=== PATIENT | female | born 1950 | race Caucasian/White ===

== ENCOUNTER 2019-03-30 15:33 | Inpatient (IN) ==
--- NOTE | 2019-03-30 17:27 | Diag Imaging Result Doc PS360 ---
EXAM: CHEST-1 VIEW INDICATION: ISCHEMIC RIGHT FOOT TECHNIQUE: One view COMPARISON: None. FINDINGS: The lungs are grossly clear. There is no discrete pleural fluid collection or pneumothorax. The cardiomediastinal silhouette and central vasculature are grossly unremarkable. IMPRESSION: No evidence of acute pathology by plain radiograph. Electronically signed by Claudy Oliver 03/30/2019 5:25 PM
--- NOTE | 2019-03-30 18:09 | EKG Report ---
Test Performed on : 03/30/2019 5:55:11 PM Test Reason : ischemic right foot Blood Pressure : / mmHG Vent. Rate : 089 BPM Atrial Rate : 089 BPM P-R Int : 158 ms QRS Dur : 090 ms QT Int : 374 ms P-R-T Axes : -18 013 -21 degrees QTc Int : 455 ms Normal sinus rhythm. Nonspecific ST abnormality Abnormal ECG No previous ECGs available Confirmed by Mirella APPIAH, Juan Ramirez ([id number]) on 03/31/2019 7:46:38 AM
[2019-03-30] MEDS: MORPHINE IV PRN ×2 (18:38→22:44)
[2019-03-30 19:37] LABS: HEMATOCRIT 24.7 % (37.0-47.0); HEMOGLOBIN 7.9 g/dL (12.0-16.0); MCH 29.5 PG (27-31); MCV 92.2 FL (81-99); MPV 9.3 FL (7.4-10.4); RBC 2.68 XMIL (4.2-5.4); RDW 12.2 % (11.5-14.5); WBC 24.82 X1000 (4.8-10.8)
[2019-03-30 19:53] LABS: AGAP 11; BUN 30 mg/dL (8-22); CALCIUM 8.8 mg/dL (8.8-10.2); CHLORIDE 88 mmol/L (98-107); COSMO 262; CREATININE 0.7 mg/dL (0.5-0.9); GLUCOSE 117 mg/dL (70-104); POTASSIUM 3.1 mmol/L (3.5-5.1); SODIUM 127 mmol/L (136-145); TCO2 28 mmol/L (25-35)
[2019-03-30 20:29] LABS: URINE SOURCE CLEAN CATCH
[2019-03-30 20:38] LABS: BILIRUBIN URINE NEGATIVE (NEGATIVE); BLOOD URINE NEGATIVE (NEGATIVE); COLOR YELLOW; GLUCOSE URINE NEGATIVE (NEGATIVE); KETONE URINE NEGATIVE (NEGATIVE); LEUKOCYTES URINE NEGATIVE (NEGATIVE); NITRITE URINE NEGATIVE (NEGATIVE); PH URINE 6.5; PROTEIN URINE NEGATIVE (NEGATIVE); TURBIDITY URINE CLEAR (CLEAR); UR EPITHELIAL CELLS <10 /HPF (<10); URINE BACTERIA NEGATIVE /HPF; URINE RBC <10 /HPF (<10); URINE WBC <10 /HPF (<10); UROBILINOGEN URINE 2 mg/dL (NORMAL)
[2019-03-31] MEDS: MORPHINE IV PRN ×5 (02:47→19:59)
[2019-03-31] MEDS: ZOSYN 3.375 GM in NS 50 ML IV SCH ×2 (08:02→16:02)
[2019-03-31] MEDS: NS + KCL 20 MEQ 1,000 ML IV SCH ×2 (08:02→18:21)
--- NOTE | 2019-03-31 08:48 | EKG Report ---
Test Performed on : 03/31/2019 07:48:28 AM Test Reason : CP Blood Pressure : / mmHG Vent. Rate : 100 BPM Atrial Rate : 100 BPM P-R Int : 154 ms QRS Dur : 082 ms QT Int : 370 ms P-R-T Axes : 079 050 086 degrees QTc Int : 477 ms Normal sinus rhythm. Cannot rule out Inferior infarct , age undetermined Cannot rule out Anterior infarct , age undetermined Abnormal ECG When compared with ECG of 30-MAR-2019 17:55, Minimal criteria for Inferior infarct are now present T wave inversion no longer evident in Inferior leads T wave inversion now evident in Lateral leads Confirmed by Mirella APPIAH, Juan Ramirez ([id number]) on 04/01/2019 7:42:25 PM
--- NOTE | 2019-03-31 09:30 | GENERAL SURGERY PROGRESS NOTE ---
DATE: 03/31/2019 SUBJECTIVE: Ms. Leahy required pain medicine for pain relief last night. OBJECTIVE: She is afebrile, heart rate is 93. Blood pressure 116/56. LABORATORY DATA: [place] [address], hemoglobin 7.9, hematocrit 24.7, sodium 127, potassium 3.1, chloride 88, BUN 30, creatinine 0.7. PLAN: To start her on IV antibiotics using Zosyn and vancomycin. We will map for greater saphenous vein. Today will give her saline with potassium also prepare blood for surgery. Once again, discussed the benefits and risks of surgery. She understands. cc: Topher Colby MD
[2019-03-31] MEDS: VANCOMYCIN 1 GM/NS 1 GM/250 ML IVPB IV SCH ×2 (10:12→21:58)
[2019-03-31] MEDS: CRESTOR PO SCH (11:11)
[2019-03-31] MEDS: NEURONTIN PO SCH ×3 (11:11→19:59)
[2019-03-31] MEDS: HYDROCHLOROTHIAZIDE PO SCH (11:13)
[2019-03-31] MEDS ORDERED: HEPARIN ONE ×4 (11:40→11:42)
[2019-03-31] MEDS ORDERED: NS 2,000 ML ONE (11:43)
[2019-03-31] MEDS ORDERED: KEFZOL ONE (12:11)
[2019-03-31] MEDS ORDERED: PAPAVERINE ONE (12:14)
[2019-03-31] MEDS ORDERED: FENTANYL ONE (12:15)
[2019-03-31] MEDS ORDERED: DIPRIVAN 1% ONE (12:16)
[2019-03-31] MEDS ORDERED: QUELICIN (DOSE) ONE (12:17)
[2019-03-31] MEDS ORDERED: SODIUM CHLORIDE 0.9% 10 ML ONE (12:17)
[2019-03-31] MEDS ORDERED: NORCURON ONE (12:17)
[2019-03-31] MEDS ORDERED: XYLOCAINE-MPF 2% ONE (12:17)
[2019-03-31] MEDS ORDERED: ROBINUL ONE ×2 (12:25→13:20)
[2019-03-31] MEDS ORDERED: VERSED ONE (12:32)
[2019-03-31] MEDS ORDERED: NEOSTIGMINE ONE (13:20)
[2019-03-31] MEDS ORDERED: ZOFRAN ONE (13:20)
[2019-03-31] MEDS: DILAUDID ONE ×2 (13:54→14:00)
[2019-03-31 14:04] LABS: URINE SOURCE CATH
[2019-03-31 14:12] LABS: BILIRUBIN URINE NEGATIVE (NEGATIVE); BLOOD URINE NEGATIVE (NEGATIVE); COLOR YELLOW; GLUCOSE URINE NEGATIVE (NEGATIVE); KETONE URINE 10 mg/dL (NEGATIVE); LEUKOCYTES URINE NEGATIVE (NEGATIVE); NITRITE URINE NEGATIVE (NEGATIVE); PH URINE 6.5; PROTEIN URINE TRACE mg/dL (NEGATIVE); SP GRAVITY URINE 1.019; TURBIDITY URINE CLEAR (CLEAR); UROBILINOGEN URINE NORMAL (NORMAL)
[2019-03-31 14:14] LABS: UR EPITHELIAL CELLS <10 /HPF (<10); URINE BACTERIA NEGATIVE /HPF; URINE RBC <10 /HPF (<10); URINE WBC <10 /HPF (<10)
--- NOTE | 2019-03-31 15:36 | OPERATIVE NOTE ---
PROCEDURE DATE: 03/31/2019 NAME OF PROCEDURE: 1. Percutaneous right common femoral artery access with ultrasound guidance. 2. Right lower extremity arteriogram. 3. Attempted right popliteal artery access with ultrasound guidance. SURGEON: Topher Colby MD ELECTRON MICROSCOPIST: YADIRA Abarca PREOPERATIVE DIAGNOSES: Rest ischemia right leg with ulceration. POSTOPERATIVE DIAGNOSES: Rest ischemia right leg with ulceration with occluded superficial femoral artery, occluded popliteal and no major vessel runoff. DESCRIPTION OF PROCEDURE: After satisfactory general endotracheal anesthesia, the left groin, right groin and right leg were prepped and draped in a sterile fashion. We imaged the right common femoral artery and identified it on the ultrasound. We then made a small stab incision and accessed the right common femoral artery antegrade. The guidewire that we placed through the needle Seldinger technique went down in the deep femoral. The stent was identified, so we knew we were not going into the SFA. We took the wire out, shot contrast through the needle and the SFA was completely occluded. We went ahead and replaced our wire and followed by a 6-Ethiopian sheath. So, we then imaged the distal popliteal and attempted access to it, but engaged the vein and did not engage the artery. We went above the knee and identified the proximal popliteal and accessed it with a needle with ultrasound guidance, but there was no flow present. We then shot a arteriogram through the sheath into the deep femoral to look for named vessel runoff, but there was absolutely no filling of any named vessel that would go below the knee to the foot. So it became apparent that she has an unsalvageable arterial flow to her foot and will end up with an amputation. I did not feel that any further intervention was indicated. We removed the sheath and held pressure for 6 minutes. Hemostasis was satisfactory. She never received any heparin. A sterile pressure dressing was applied. She tolerated the procedure satisfactorily. She was given 37 mL of contrast. She was sent to the recovery room in stable condition. cc: Topher Colby MD
[2019-03-31] MEDS: NORCO-10 PO PRN ×2 (17:35→21:58)
--- NOTE | 2019-03-31 19:24 | VASCULAR LAB ---
DATE: 03/31/2019 PACKING CLERK: Chloe. REQUESTING PHYSICIAN: Dr. Colby. INDICATION: Evaluate for bypass. FINDINGS: The greater saphenous vein in the right lower extremity, starting at the saphenofemoral junction: Zone 1, 4.1 mm, zone 2, 2.1, zone 3, 1.4, zone 4, 1.4, zone 5, 1.3, zone 6, 1.3, zone 7, 1.4, zone 8, 2.5. SUMMARY: The greater saphenous vein is very sclerotic and small caliber in the right lower extremity. It is not an adequate conduit. cc: MD Topher Pickens MD
[2019-03-31] MEDS: PERIDEX MT SCH (21:58)
[2019-04-01] MEDS: ZOSYN 3.375 GM in NS 50 ML IV SCH ×4 (00:06→18:06)
[2019-04-01] MEDS: MORPHINE IV PRN ×6 (00:31→22:09)
[2019-04-01] MEDS: NS + KCL 20 MEQ 1,000 ML IV SCH ×2 (01:09→13:18)
[2019-04-01] MEDS: NORCO-10 PO PRN ×5 (02:25→20:22)
[2019-04-01 07:11] LABS: BASO# 0.05 X1000 (0.0-0.2); BASO% 0.3 % (0.0-0.8); EOS# 0.21 X1000 (0.0-0.7); EOS% 1.4 % (0.0-10.0); HEMATOCRIT 27.2 % (37.0-47.0); HEMOGLOBIN 8.6 g/dL (12.0-16.0); IMM GRAN# 0.54 X1000 (0.0-0.04); IMM GRAN% 3.5 % (0.0-0.5); LYMPH# 2.24 X1000 (1.2-3.4); LYMPH% 14.5 % (20.5-51.1); MCH 28.7 PG (27-31); MCHC 31.6 g/dL (33-37); MCV 90.7 FL (81-99); MONO# 1.61 X1000 (0.11-0.59); MONO% 10.4 % (1.7-9.3); NEUT# 10.76 X1000 (1.4-6.5); NEUT% 69.9 % (42.2-75.2); PLT 638 X1000 (130-400); RDW 17.3 % (11.5-14.5); WBC 15.41 X1000 (4.8-10.8)
[2019-04-01 07:39] LABS: AGAP 10; BUN 7 mg/dL (8-22); CALCIUM 8.5 mg/dL (8.8-10.2); CHLORIDE 103 mmol/L (98-107); COSMO 269; CREATININE 0.5 mg/dL (0.5-0.9); GLUCOSE 90 mg/dL (70-104); POTASSIUM 4.4 mmol/L (3.5-5.1); SODIUM 136 mmol/L (136-145); TCO2 23 mmol/L (25-35)
[2019-04-01] MEDS: HYDROCHLOROTHIAZIDE PO SCH (08:15)
[2019-04-01] MEDS: NEURONTIN PO SCH ×3 (08:15→20:21)
[2019-04-01] MEDS: CRESTOR PO SCH (08:15)
[2019-04-01] MEDS: VANCOMYCIN 1 GM/NS 1 GM/250 ML IVPB IV SCH ×2 (08:18→20:21)
[2019-04-01] MEDS: PERIDEX MT SCH ×2 (08:21→20:21)
--- NOTE | 2019-04-01 18:07 | GENERAL SURGERY PROGRESS NOTE ---
DATE: 04/01/2019 Ms. Leahy is postoperative day 1 after right lower extremity arteriogram. I discussed with her the fact that she had no named vessels that were patent below her thigh. I told her that I had no choice but to proceed with amputation, and I thought above the knee would be necessary because of her paucity of flow. She understands that, she accepts it, and she is ready to proceed. We have her scheduled tomorrow for a right above-knee amputation. Her white count today is down to 15,000. Chemistry is okay. cc: Topher Colby MD
[2019-04-02] MEDS: ZOSYN 3.375 GM in NS 50 ML IV SCH ×4 (00:07→17:37)
[2019-04-02] MEDS: NORCO-10 PO PRN ×4 (00:07→20:50)
[2019-04-02] MEDS: NS + KCL 20 MEQ 1,000 ML IV SCH ×3 (00:38→17:14)
[2019-04-02] MEDS: MORPHINE IV PRN ×3 (05:04→18:14)
[2019-04-02] MEDS ORDERED: DIPRIVAN 1% ONE (09:16)
[2019-04-02] MEDS: NEURONTIN PO SCH ×3 (09:32→20:51)
[2019-04-02] MEDS: HYDROCHLOROTHIAZIDE PO SCH (09:32)
[2019-04-02] MEDS: CRESTOR PO SCH (09:32)
[2019-04-02] MEDS: PERIDEX MT SCH ×2 (09:32→20:51)
[2019-04-02] MEDS: VANCOMYCIN 1 GM/NS 1 GM/250 ML IVPB IV SCH ×2 (09:56→20:51)
[2019-04-02] MEDS ORDERED: FENTANYL ONE (10:43)
[2019-04-02] MEDS ORDERED: ZOFRAN ONE (11:06)
[2019-04-02] MEDS: DILAUDID ONE ×4 (11:44→12:05)
[2019-04-02] MEDS: PRINIVIL PO SCH (12:54)
[2019-04-02] MEDS: NORVASC PO SCH (12:54)
--- NOTE | 2019-04-02 14:02 | OPERATIVE NOTE ---
PROCEDURE DATE: 04/02/2019 PROCEDURE PERFORMED: Right above-knee amputation. SURGEON: Topher Colby MD. MANAGER SUPPLY CHAIN PLANNING: Sylvie Rosas RN. PREOPERATIVE DIAGNOSIS: Ischemic gangrene of the right foot. POSTOPERATIVE DIAGNOSIS: Ischemic gangrene of the right foot. INDICATION: A 68-year-old with end-stage peripheral vascular disease without any runoff below the knee. She now presents for a right above-knee amputation. DESCRIPTION OF PROCEDURE: Satisfactory general anesthesia was achieved and LMA was used. The right leg was prepped and draped in a sterile fashion. The foot was excluded. We made a curvilinear dioni anteriorly and posteriorly above the knee. We incised the skin, used the electrocautery to go through the muscle groups anteriorly, laterally and posteriorly. The superficial femoral vessels were clamped, divided, and suture ligated with 2-0 silk suture ligature even there was no arterial flow. Some minor arterial vessels were noted deep in the thigh. These were easily controlled with cautery. After the muscle groups, we identified the nerve, ligated the tibial nerve, ligated it with a 3-0 Polysorb, transected it. We went all the way to the femur. We then raised the periosteum on the femur and then transected with a Gigli saw. The knee and lower leg were handed off. We used a file to file the end of the femur. We then copiously irrigated the stump. We approximated the muscle groups with 0 Polysorb [id number]-[id number] stitches. We approximated the subcutaneous tissue with interrupted 3-0 Polysorb stitches and closed the skin with coby. Xeroform, sterile 4 x 4s, sterile Kerlix and a 6-inch Dileep was applied. She tolerated it well, sent to the recovery room in satisfactory condition. cc: Topher Colby MD
[2019-04-03] MEDS: MORPHINE IV PRN ×6 (00:27→21:49)
[2019-04-03] MEDS: ZOSYN 3.375 GM in NS 50 ML IV SCH ×4 (01:33→21:49)
[2019-04-03] MEDS: NORCO-10 PO PRN ×6 (01:34→22:56)
[2019-04-03] MEDS: NS + KCL 20 MEQ 1,000 ML IV SCH (05:12)
[2019-04-03 06:11] LABS: BASO# 0.04 X1000 (0.0-0.2); BASO% 0.2 % (0.0-0.8); EOS% 1.7 % (0.0-10.0); HEMATOCRIT 31.8 % (37.0-47.0); HEMOGLOBIN 10.2 g/dL (12.0-16.0); LYMPH# 2.24 X1000 (1.2-3.4); LYMPH% 12.8 % (20.5-51.1); MCH 29.8 PG (27-31); MCHC 32.1 g/dL (33-37); MONO# 1.74 X1000 (0.11-0.59); MONO% 9.9 % (1.7-9.3); MPV 8.5 FL (7.4-10.4); NEUT# 13.17 X1000 (1.4-6.5); NEUT% 75.4 % (42.2-75.2); PLT 659 X1000 (130-400); RBC 3.42 XMIL (4.2-5.4); WBC 17.49 X1000 (4.8-10.8)
[2019-04-03 06:15] LABS: AGAP 7; BUN 4 mg/dL (8-22); CALCIUM 8.1 mg/dL (8.8-10.2); CHLORIDE 101 mmol/L (98-107); COSMO 263; CREATININE 0.4 mg/dL (0.5-0.9); GLUCOSE 87 mg/dL (70-104); POTASSIUM 3.8 mmol/L (3.5-5.1); SODIUM 133 mmol/L (136-145); TCO2 25 mmol/L (25-35)
[2019-04-03] MEDS: PERIDEX MT SCH ×2 (08:12→21:49)
[2019-04-03] MEDS: NEURONTIN PO SCH ×3 (08:13→21:49)
[2019-04-03] MEDS: PRINIVIL PO SCH (08:13)
[2019-04-03] MEDS: CRESTOR PO SCH (08:13)
[2019-04-03] MEDS: HYDROCHLOROTHIAZIDE PO SCH (08:13)
[2019-04-03] MEDS: NORVASC PO SCH (08:14)
--- NOTE | 2019-04-03 08:48 | PROGRESS NOTE ---
DATE: 04/03/2019 SUBJECTIVE: Ms. Nelda Leahy is now postop day 1 from a right [id number] amputation for an ischemic right leg per Dr. Colby. OBJECTIVE: She is comfortable this morning. She is awake. She has a Magallon catheter tube in place. Her right hrwnt-xry-dwob amputation wound is dry he. Her heart rate is 93 degrees, blood pressure 147/66, O2 saturation 97%. She is afebrile. She is on IV vancomycin and Zosyn. Her white blood cell count yesterday was 17. BUN and creatinine are 4 and 0.4. MEDICATIONS: She is receiving Hardin 10 and morphine as needed for pain. PLAN: We will leave her Magallon catheter tube in place. Physical Therapy will have to start working with her probably Friday. She is on a diabetic diet. cc: MD Topher Easley MD
[2019-04-03] MEDS: VANCOMYCIN 1 GM/NS 1 GM/250 ML IVPB IV SCH ×2 (08:53→21:49)
[2019-04-04] MEDS: NORCO-10 PO PRN ×4 (05:17→20:58)
[2019-04-04] MEDS: ZOSYN 3.375 GM in NS 50 ML IV SCH ×4 (05:17→20:57)
[2019-04-04] MEDS: HYDROCHLOROTHIAZIDE PO SCH (09:32)
[2019-04-04] MEDS: CRESTOR PO SCH (09:33)
[2019-04-04] MEDS: PRINIVIL PO SCH (09:33)
[2019-04-04] MEDS: NEURONTIN PO SCH ×3 (09:33→20:58)
[2019-04-04] MEDS: NORVASC PO SCH (09:34)
[2019-04-04] MEDS: PERIDEX MT SCH ×2 (09:34→20:58)
[2019-04-04] MEDS: VANCOMYCIN 1 GM/NS 1 GM/250 ML IVPB IV SCH ×2 (09:34→21:15)
--- NOTE | 2019-04-04 09:52 | PROGRESS NOTE ---
DATE: 04/04/2019 Ms Nelda Leahy is status post right vtvsk-[id number]-[id number] amputation per Dr. Colby for ischemic foot. She appears to be comfortable. She is tolerating a regular diet. She still has a Magallon catheter tube in place. Physical therapy has been consulted and I think the plan is to send her to rehab shortly. cc: MD Topher Easley MD
[2019-04-04] MEDS: NS + KCL 20 MEQ 1,000 ML IV SCH ×2 (17:16→20:59)
[2019-04-05] MEDS: ZOSYN 3.375 GM in NS 50 ML IV SCH ×5 (03:12→21:25)
[2019-04-05] MEDS: NORCO-10 PO PRN ×4 (05:33→21:25)
[2019-04-05] MEDS: NEURONTIN PO SCH ×3 (09:02→21:25)
[2019-04-05] MEDS: CRESTOR PO SCH (09:02)
[2019-04-05] MEDS: PERIDEX MT SCH ×2 (09:03→21:25)
[2019-04-05] MEDS: HYDROCHLOROTHIAZIDE PO SCH (09:03)
[2019-04-05] MEDS ORDERED: NS + KCL 20 MEQ 1,000 ML IV SCH (09:04)
--- NOTE | 2019-04-05 09:34 | GENERAL SURGERY PROGRESS NOTE ---
DATE: 04/05/2019 She is now postop day 3 after AK amputation. She feels a whole lot better than she did. The plan today is remove her Magallon, cut her IV rate down to KVO. Physical therapy will be involved in transfer training and will start working on rehab placement. cc: Topher Colby MD
[2019-04-05] MEDS: VANCOMYCIN 1 GM/NS 1 GM/250 ML IVPB IV SCH ×2 (09:46→21:25)
[2019-04-05] MEDS: PRINIVIL PO SCH (09:56)
[2019-04-05] MEDS: NORVASC PO SCH (09:56)
[2019-04-05 10:21] LABS: BASO# 0.06 X1000 (0.0-0.2); BASO% 0.4 % (0.0-0.8); EOS# 0.33 X1000 (0.0-0.7); EOS% 2.3 % (0.0-10.0); HEMATOCRIT 31.1 % (37.0-47.0); HEMOGLOBIN 9.8 g/dL (12.0-16.0); IMM GRAN# 0.19 X1000 (0.0-0.04); IMM GRAN% 1.3 % (0.0-0.5); LYMPH# 1.67 X1000 (1.2-3.4); LYMPH% 11.6 % (20.5-51.1); MCH 29.3 PG (27-31); MCHC 31.5 g/dL (33-37); MCV 93.1 FL (81-99); MONO# 1.17 X1000 (0.11-0.59); MONO% 8.1 % (1.7-9.3); MPV 8.2 FL (7.4-10.4); NEUT# 10.97 X1000 (1.4-6.5); NEUT% 76.3 % (42.2-75.2); PLT 718 X1000 (130-400); RBC 3.34 XMIL (4.2-5.4); RDW 15.6 % (11.5-14.5); WBC 14.39 X1000 (4.8-10.8)
[2019-04-06] MEDS: ZOSYN 3.375 GM in NS 50 ML IV SCH ×2 (03:19→08:00)
[2019-04-06] MEDS: NORCO-10 PO PRN ×4 (03:22→20:40)
[2019-04-06] MEDS: PERIDEX MT SCH ×2 (07:59→20:40)
[2019-04-06] MEDS: CRESTOR PO SCH (08:00)
[2019-04-06] MEDS: NEURONTIN PO SCH ×3 (08:00→20:40)
--- NOTE | 2019-04-06 08:20 | GENERAL SURGERY PROGRESS NOTE ---
DATE: 04/06/2019 SUBJECTIVE: She was seen by Physical Therapy, has been taught to transfer. She got up this morning with the help of the nurse into the chair. She was sitting up in a chair when I walked into the room. OBJECTIVE: She is afebrile. Hemodynamics are good. Her white count is down to 14,000 yesterday. PLAN: The plan is to work toward getting her to rehab this week. [facility] will cover in my absence. cc: Topher Colby MD
[2019-04-06 09:08] LABS: BASO# 0.08 X1000 (0.0-0.2); BASO% 0.5 % (0.0-0.8); EOS% 2.7 % (0.0-10.0); HEMATOCRIT 32.4 % (37.0-47.0); HEMOGLOBIN 10.2 g/dL (12.0-16.0); IMM GRAN# 0.16 X1000 (0.0-0.04); IMM GRAN% 1.1 % (0.0-0.5); LYMPH# 1.85 X1000 (1.2-3.4); LYMPH% 12.6 % (20.5-51.1); MCH 29.3 PG (27-31); MCHC 31.5 g/dL (33-37); MCV 93.1 FL (81-99); MONO# 1.18 X1000 (0.11-0.59); MPV 8.2 FL (7.4-10.4); NEUT# 11.03 X1000 (1.4-6.5); NEUT% 75.1 % (42.2-75.2); PLT 752 X1000 (130-400); RBC 3.48 XMIL (4.2-5.4); RDW 15.7 % (11.5-14.5)
[2019-04-06 09:24] LABS: EOS 4 % (1-10); LYMPHS 12 % (21-51); MONO 8 % (1-9)
[2019-04-06 09:25] LABS: HYPOCHROM 1+
[2019-04-06 09:26] LABS: BANDS 2 % (0-1); SEGS 70 % (42-75)
[2019-04-06] MEDS: PRINIVIL PO SCH (11:13)
[2019-04-06] MEDS: NORVASC PO SCH (11:13)
[2019-04-06] MEDS: HYDROCHLOROTHIAZIDE PO SCH (11:13)
--- NOTE | 2019-04-06 13:15 | DISCHARGE SUMMARY ---
ADMISSION DATE: 03/30/2019 DISCHARGE DATE: 04/07/2019 PRIMARY DISCHARGE DIAGNOSIS: Ischemic gangrene of the right foot. OTHER DIAGNOSIS: Includes a history of tobacco dependence. PRIMARY PROCEDURE: Right above-knee amputation. HISTORY: This is a pleasant 68-year-old who has developed ischemic gangrene of the right foot. She had endovascular stents placed in [place] in the spring. The past few weeks, however, she has developed increasing pain and discoloration of her right foot. She was admitted. No saphenous vein was adequate for bypass. She had no runoff vessels to speak of. We did take her to the operating room, and we did do a lower extremity arteriogram, but she simply had no runoff whatsoever, so I then discussed with her the gravity of the situation, and we took her to the operating room on 04/02/2019, and she underwent the right AK amputation. We kept her on Zosyn and vancomycin postop because of her ischemic gangrene. Postoperatively, she did generally well. We kept her Magallon in for 2 days, and then removed it. Physical Therapy saw her and assisted her with transfers. She did gain confidence with that, and it was felt by 04/07/2019 that she could be transferred to rehab. Her stump looked fine. Her white count did not completely normalize, but we felt that we had given her adequate antibiotic therapy, and will follow up with that. She will return to see me in 3 weeks for staple removal. cc: Topher Colby MD
[2019-04-07] MEDS: NORCO-10 PO PRN ×2 (05:19→09:51)
[2019-04-07 07:50] VITALS: BP 134/61
[2019-04-07] MEDS: NEURONTIN PO SCH (08:12)
[2019-04-07] MEDS: CRESTOR PO SCH (08:12)
[2019-04-07] MEDS: PERIDEX MT SCH (08:12)
[2019-04-07] MEDS: HYDROCHLOROTHIAZIDE PO SCH (09:52)
[2019-04-07] MEDS: PRINIVIL PO SCH (09:52)
[2019-04-07] MEDS: NORVASC PO SCH (09:52)
== END 2019-04-07 10:25 | DRG 240 ==
LOC: DIRADM 15:33 → 4N 16:20
PROVIDERS: ADMIT Surgery; ATTEND Surgery

== ENCOUNTER 2019-06-10 05:10 | Inpatient (IN) ==
[2019-06-07 15:44] LABS: HEMATOCRIT 39.3 % (37.0-47.0); HEMOGLOBIN 12.2 g/dL (12.0-16.0); MCH 28.8 PG (27-31); MCV 92.9 FL (81-99); MPV 9.8 FL (7.4-10.4); RBC 4.23 XMIL (4.2-5.4); RDW 14.2 % (11.5-14.5); WBC 8.4 X1000 (4.8-10.8)
[2019-06-07 15:51] LABS: AGAP 10; BUN 14 mg/dL (8-22); CALCIUM 9.8 mg/dL (8.8-10.2); CHLORIDE 103 mmol/L (98-107); COSMO 285; CREATININE 0.6 mg/dL (0.5-0.9); ESTIMATED GFR > 60; GLUCOSE 98 mg/dL (70-104); POTASSIUM 4.9 mmol/L (3.5-5.1); SODIUM 143 mmol/L (136-145); TCO2 30 mmol/L (25-35)
[2019-06-10] MEDS ORDERED: KEFZOL 1 GM/D5W 1 GM/50 ML IVPB ONE (05:42)
[2019-06-10] MEDS ORDERED: LR 1,000 ML ONE (05:42)
[2019-06-10] MEDS ORDERED: DIPRIVAN 1% ONE (06:30)
[2019-06-10] MEDS ORDERED: XYLOCAINE-MPF 2% ONE (06:32)
[2019-06-10] MEDS ORDERED: QUELICIN (DOSE) ONE (06:34)
[2019-06-10] MEDS ORDERED: FENTANYL ONE (06:35)
[2019-06-10] MEDS ORDERED: SODIUM CHLORIDE 0.9% 10 ML ONE (06:36)
[2019-06-10] MEDS ORDERED: NORCURON ONE (06:36)
[2019-06-10] MEDS ORDERED: KEFZOL ONE (06:41)
[2019-06-10] MEDS ORDERED: NS 1,000 ML ONE ×2 (06:41→09:47)
[2019-06-10] MEDS ORDERED: HEPARIN ONE (06:41)
[2019-06-10] MEDS ORDERED: VERSED ONE (06:56)
[2019-06-10] MEDS ORDERED: DECADRON ONE (07:47)
[2019-06-10] MEDS ORDERED: OFIRMEV 1000 MG/ISOTONIC SOLN 1,000 MG/100 ML BOTTLE ONE (07:54)
[2019-06-10] MEDS ORDERED: SENSORCAINE 0.25%/EPI 1:200,000 ONE (09:13)
[2019-06-10] MEDS ORDERED: ROBINUL ONE (09:19)
[2019-06-10] MEDS ORDERED: NEOSTIGMINE ONE (09:21)
[2019-06-10 09:47] LABS: URINE SOURCE CATH
[2019-06-10 09:49] LABS: BILIRUBIN URINE NEGATIVE (NEGATIVE); BLOOD URINE NEGATIVE (NEGATIVE); COLOR YELLOW; GLUCOSE URINE NEGATIVE (NEGATIVE); KETONE URINE NEGATIVE (NEGATIVE); LEUKOCYTES URINE NEGATIVE (NEGATIVE); NITRITE URINE NEGATIVE (NEGATIVE); PROTEIN URINE NEGATIVE (NEGATIVE); SP GRAVITY URINE 1.012; TURBIDITY URINE CLEAR (CLEAR); UROBILINOGEN URINE NORMAL (NORMAL)
[2019-06-10 09:50] LABS: UR EPITHELIAL CELLS <10 /HPF (<10); URINE BACTERIA NEGATIVE /HPF; URINE RBC <10 /HPF (<10); URINE WBC <10 /HPF (<10)
[2019-06-10] MEDS: DILAUDID ONE ×2 (10:04→10:08)
[2019-06-10] MEDS ORDERED: NORCO-10 ONE (10:20)
[2019-06-10] MEDS: NS 1,000 ML IV SCH (10:50)
[2019-06-10] MEDS ORDERED: ZOFRAN IV PRN (11:17)
[2019-06-10] MEDS ORDERED: ALEVE PO PRN (11:17)
[2019-06-10] MEDS ORDERED: DILAUDID IV PRN (11:17)
[2019-06-10] MEDS: NEURONTIN PO SCH ×2 (14:05→16:57)
--- NOTE | 2019-06-10 14:29 | OPERATIVE NOTE ---
PROCEDURE DATE: 06/10/2019 PROCEDURE PERFORMED: Left femoral popliteal in situ vein bypass. SURGEON: Topher Colby MD. CONCIERGE RECEPTIONIST: Omar Parkinson RN. PREOPERATIVE DIAGNOSIS: Left superficial femoral artery occlusion with claudication of the left leg. POSTOP DIAGNOSIS: Left superficial femoral artery occlusion with claudication of the left leg. INDICATION: Indications 68-year-old who has had a right leg amputation and now has had atherosclerotic disease on the left as well. She is claudicated on the left but her recently her left foot has started hurting her more even at night so this was really for limb salvage. The vein imaged preoperatively. Marginal but adequate to the knee level. DESCRIPTION OF PROCEDURE: Under satisfactory general endotracheal anesthesia, the left leg was prepped and draped in a sterile fashion. The vein had previously been mapped. We made a longitudinal incision in the left groin dissected down to the common femoral artery surrounded with an umbilical tape. The superficial femoral was surround with a large vessel loop. The profunda was identified and surrounded with a large vessel loop as well. 5000 units of heparin were given. We identified the greater saphenous vein and marked it on its anterior aspect. The small branches at the proximal end we ligated and divided. This exposed the saphenofemoral junction. We then under 2.5 loupe magnification, we clamped off the greater saphenous vein at the junction of the femoral vein using a Satinsky clamp. We then put a small bulldog clamp on the greater saphenous vein. We then amputated the vein at the femoral vein junction. We excised one of the valves in the opening of the greater saphenous vein. We then over sewed the stump with a 5- 0 Prolene horizontal mattress stitch, followed by a running stitch. We did not see any of the valves at the orifice of the greater saphenous vein within our reach. We swung it and translocated it over the femoral artery. It came to the common femoral, easily. We then occluded flow with a DeBakey clamp in the common femoral with a vessel loop in the profunda. There was no flow out to the SFA. We then incised the common femoral in its anterior aspect. Quite a bit of plaque was found within the artery. We found the lumen and we could pass a 3 and 3 and half dilator into the profunda easily and back up into the common. We then constructed the vein to common femoral artery anastomosis using a 5-0 Prolene stitch. Upon completion, we then allowed flow into the vein proximally. The flow went down to the first valve. An antibiotic sponge was placed. A small Gel-Foam was placed at the very tip of the anastomosis. We then turned our attention to the distal medial thigh. We made a longitudinal incision, carried our incision into the subcutaneous tissue. We did encounter the vein which was rather small but we preserved it. We then fine found the popliteal space and dissected out the distal SFA proximal popliteal artery. We surrounded the vessel loops. A small branch was surrounded with 2-0 silk. We then decided to pass the joint and identified a branch off the greater saphenous vein. We used this branch to pass our valvulotome all the way up to the proximal anastomosis. We then opened the valvulotome and slowly gently passed pulled it down the vein. After the 1st pass we had pulsatile flow. We passed it once again. Again did it carefully an again after completing it, we had pulsatile flow. We then clipped off the branch that we had used and there was a pulse now within the vein. We then marked the vein so we would not twist it distally. We kept it moist as well. We then incised the artery on its medial aspect. Again quite a bit of plaque and disease was noted within the artery but there was a lumen distally. We passed a 3, 3-1/2 and 4 into the distal popliteal and did get back bleeding. We then translocated the vein over to the artery. We cut the vein to the appropriate length, and an incised it with the Balderas scissors on this deep aspect to match the arteriotomy. We then under 2 and a half loupe magnification we used a 6-0 Prolene stitch to construct our vein popliteal artery anastomosis. As we neared completion, we flushed the vein graft, had good antegrade pulsatile flow. Once again, and backbleeding from the popliteal. We finished the anastomosis and flow was established. Hemostasis was satisfactory. We had two areas along the course of the thigh where the vein was marked with branches. We cut down on those and clipped these branches. We then felt satisfied with our pulse in her vein graft. Hemostasis was satisfactory. We then irrigated out both wounds. We then closed the wounds with interrupted 3-0 Polysorb into 2 layers. We then closed the skin at each incision with 4-0 Polysorb subcuticular stitches. We did use 0.25 Marcaine with epinephrine in the proximal wound, the branch wounds and then the anterior portion of the distal wound. Sterile dressings were applied. She tolerated it well. Estimated blood loss was about 200 mL. She was sent to the recovery room in satisfactory condition. cc: Topher Colby MD
[2019-06-10] MEDS: KEFZOL 1 GM/D5W 1 GM/50 ML IVPB IV SCH ×2 (15:05→22:07)
[2019-06-10] MEDS ORDERED: FLU VACCINE IM ONE (15:17)
--- NOTE | 2019-06-10 15:36 | Extremity Venous Study ---
PROCEDURE NAME: Vein Mapping Left GSV - 06/09/2019 STUDY: Left lower extremity greater saphenous vein mapping. MICROGRINDER OPERATOR: Corona. REQUESTING PHYSICIAN: Topher Colby MD. INDICATION: Evaluate for bypass. FINDINGS: The greater saphenous vein starting with zone 1 is 4.5 mm, zone 2; 2.8, zone 3; 2.3, zone 4; 2.4, zone 5; 2.2, zone 6; 1.9, zone 7; 1.6, zone 8; 2.7. Small saphenous vein is 3.0, extending distally is 2.1, 2.6, and 2.7. marginal conduit both in the greater saphenous and small saphenous vein in the left lower extremity. cc: MD Topher Pickens MD MTDD
[2019-06-10] MEDS: NORCO-10 PO PRN (17:00)
--- NOTE | 2019-06-10 21:26 | GENERAL SURGERY PROGRESS NOTE ---
DATE: 06/10/2019 SUBJECTIVE/OBJECTIVE: Ms. Leahy's foot is warm. She has good Doppler flow in the dorsalis pedis and posterior tibial position. ASSESSMENT/PLAN: She is very pleased with her progress. We will keep her on aspirin and Plavix postop. cc: Topher Colby MD
[2019-06-10] MEDS: PERIDEX MT SCH (22:07)
[2019-06-11] MEDS: NORCO-10 PO PRN ×5 (03:12→22:02)
[2019-06-11] MEDS: NS 1,000 ML IV SCH ×3 (06:02→12:24)
[2019-06-11 06:53] LABS: BASO# 0.03 X1000 (0.0-0.2); BASO% 0.3 % (0.0-0.8); EOS# 0.23 X1000 (0.0-0.7); EOS% 2.5 % (0.0-10.0); HEMATOCRIT 31.5 % (37.0-47.0); HEMOGLOBIN 9.6 g/dL (12.0-16.0); IMM GRAN# 0.03 X1000 (0.0-0.04); IMM GRAN% 0.3 % (0.0-0.5); LYMPH# 2.43 X1000 (1.2-3.4); LYMPH% 25.9 % (20.5-51.1); MCH 28.6 PG (27-31); MCHC 30.5 g/dL (33-37); MCV 93.8 FL (81-99); MONO# 1.02 X1000 (0.11-0.59); MONO% 10.9 % (1.7-9.3); MPV 9.5 FL (7.4-10.4); NEUT# 5.64 X1000 (1.4-6.5); NEUT% 60.1 % (42.2-75.2); PLT 281 X1000 (130-400); RBC 3.36 XMIL (4.2-5.4); RDW 14.3 % (11.5-14.5); WBC 9.38 X1000 (4.8-10.8)
[2019-06-11] MEDS: CRESTOR PO SCH (08:03)
[2019-06-11] MEDS: PLAVIX PO SCH (08:03)
[2019-06-11] MEDS: NEURONTIN PO SCH ×3 (08:03→17:12)
[2019-06-11] MEDS: ASPIRIN PO SCH (08:04)
[2019-06-11] MEDS: NORVASC PO SCH (08:04)
[2019-06-11] MEDS: HYDROCHLOROTHIAZIDE PO SCH (08:04)
[2019-06-11] MEDS: PERIDEX MT SCH ×2 (08:07→20:06)
[2019-06-11 08:10] LABS: AGAP 8; BUN 7 mg/dL (8-22); CALCIUM 8.6 mg/dL (8.8-10.2); CHLORIDE 108 mmol/L (98-107); COSMO 283; CREATININE 0.4 mg/dL (0.5-0.9); ESTIMATED GFR > 60; GLUCOSE 103 mg/dL (70-104); SODIUM 143 mmol/L (136-145); TCO2 27 mmol/L (25-35)
[2019-06-11] MEDS ORDERED: SALINE LOCK IV FLUID XX ONE (12:24)
--- NOTE | 2019-06-11 18:58 | GENERAL SURGERY PROGRESS NOTE ---
DATE: 06/11/2019 OBJECTIVE: Ms. Leahy is afebrile. Heart rate 90. Blood pressure 149/68. Her bandages are dry. She has a palpable dorsalis pedis pulse. PLAN: The plan will be to remove her Magallon today. We will get her out of bed. She should be able to be discharged on Friday the . She will return to see me in the office in a week. She is to be discharged on Plavix and aspirin combined. cc: Topher Colby MD
[2019-06-12] MEDS: NORCO-10 PO PRN ×2 (03:18→08:45)
[2019-06-12 08:08] VITALS: BP 125/70
[2019-06-12] MEDS: NEURONTIN PO SCH (08:45)
[2019-06-12] MEDS: CRESTOR PO SCH (08:45)
[2019-06-12] MEDS: HYDROCHLOROTHIAZIDE PO SCH (08:45)
[2019-06-12] MEDS: PLAVIX PO SCH (08:45)
[2019-06-12] MEDS: PERIDEX MT SCH (08:45)
[2019-06-12] MEDS: ASPIRIN PO SCH (08:46)
[2019-06-12] MEDS: NORVASC PO SCH (08:46)
--- NOTE | 2019-06-13 04:42 | DISCHARGE SUMMARY ---
ADMISSION DATE: 06/10/2019 DISCHARGE DATE: 06/12/2019 PRINCIPAL PROCEDURE: Left femoral popliteal in situ vein bypass per Dr. Colby on 06/10/2019. DISCHARGE DISABILITY: Full. DISCHARGE DIET: Regular. DISCHARGE DISPOSITION: She will followup with Dr. Colby in a week. DISCHARGE MEDICATIONS: She is to return to her home medications, which include Plavix and aspirin. HOSPITAL COURSE: Ms. Nelda Leahy is a 68-year-old, slim, white female, patient of Dr. Johnathan Vences who on 06/09/2019 underwent saphenous vein mapping for a left lower extremity arterial bypass. She has had a right [id number] amputation. She was admitted on the day of surgery, 06/10/2019 and underwent a left femoropopliteal arterial bypass in situ graft per Dr. Colby. She had good flow in the graft on postop day 1, her foot was warm. An ischemic ulcer involving that left foot was already improving clinically. Her incisions were intact. It was felt safe to discharge her home under the care of her family with followup with Dr. Colby. At discharge, her heart rate was 94 blood pressure 125/70, O2 saturation 97%. She was afebrile. She knows to contact us with any increasing swelling of the left leg or pain involving the left foot. cc: MD Topher Easley MD
== END 2019-06-12 10:39 | disposition home or self-care (01) | DRG 254 ==
LOC: SURHOLD 05:10 → 4N 11:09
PROVIDERS: ADMIT Surgery; ATTEND Surgery

== ENCOUNTER 2019-06-16 13:20 | Inpatient (IN) ==
[2019-06-16] MEDS ORDERED: HEPARIN IV ONE (14:19)
[2019-06-16] MEDS ORDERED: HEPARIN 25,000 UNITS/D5W 25,000 UNIT/250 ML IV.SOLN IV SCH (14:30)
[2019-06-16] MEDS ORDERED: HYDROXYZINE LIQUID PO ONE (14:33)
--- NOTE | 2019-06-16 14:40 | GENERAL SURGERY CONSULTATION ---
DATE: 06/16/2019 REQUESTING PHYSICIAN: Emergency Department. REASON FOR CONSULTATION: Thrombosed femoral-popliteal bypass. HISTORY OF PRESENT ILLNESS: A 68-year-old female, well known to my group, who on 06/10/2019 underwent a left fem popliteal in situ vein bypass. She apparently was doing fine and was discharged on 06/12/2019 with apparently good flow. She came in to the emergency department complaining of left leg being worse. She was seen in the emergency department by myself. She has at least a monophasic dorsalis pedis and posterior tibial. The leg itself does not seem to be acutely threatened, but she is having some claudication-like symptoms. I suspect she is likely back at her baseline. PAST MEDICAL HISTORY: 1. History of atherosclerosis. 2. Peripheral vascular disease. 3. Hypertension. PAST SURGICAL HISTORY: 1. Previous right uegpf-ypm-kitn amputation. 2. Recent femoral-popliteal bypass. HOME MEDICATIONS: Full list reviewed. Of note, patient is on aspirin and Plavix. ALLERGIES: None reported. FAMILY HISTORY: Reviewed with patient, noncontributory. SOCIAL HISTORY: Former smoker. REVIEW OF SYSTEMS: Full 14 systems reviewed and are negative, except as specified in HPI. PHYSICAL EXAMINATION: Vital Signs: Patient is currently afebrile. Vital signs stable. General exam: No acute distress. Alert, interactive female looks stated age. HEENT: Normocephalic, atraumatic. Pupils equal, round, reactive to light. Mucous membranes moist. Oropharynx benign. Neck: Supple. Trachea midline. Cardiovascular: Regular rate and rhythm. Lungs: Grossly clear. Abdomen: Soft, nontender, nondistended. Extremities: Previous amputation noted on the right side. On the left side, the surgical scars appear to be healing well. There is flow noted by Doppler. The saphenous conduit appears to have flow to about mcfp down the thigh and that is lucid. There is a monophasic posterior tibial and a monophasic dorsalis pedis on that side. The foot itself appears to be perfused and not acutely threatened. She does have some chronic wounds. Vascular: As noted above. Neurologic: Intact. Skin: Wounds as noted above. LABORATORY: None this morning as of yet. IMAGING: None. ASSESSMENT AND PLAN: A 68-year-old female with likely occlusion of her left femoral-popliteal bypass. 1. Occlusion of the left femoral-popliteal bypass. We will get the hospitalist to admit the patient. We will put her on a heparin drip. We will keep her on nothing by mouth after midnight. We will have Dr. Colby evaluate her for possible attempts at revascularization. He has tried several attempts and tried to do this percutaneous and has been unsuccessful, so we will need to see what his opinion is given her recent surgery, if he wants to try to go back and try to open up the graft, but again we will try to see if we can anticoagulate her for right now. cc: Arian Hoffman MD
[2019-06-16 15:00] LABS: INR 1.12; PROTIME 14.5 Seconds (11.0-16.0); PTT 26.8 Seconds (22.3-41.8)
[2019-06-16 15:01] LABS: BASO# 0.03 X1000 (0.0-0.2); BASO% 0.1 % (0.0-0.8); HEMATOCRIT 30.4 % (37.0-47.0); HEMOGLOBIN 9.6 g/dL (12.0-16.0); IMM GRAN# 0.26 X1000 (0.0-0.04); IMM GRAN% 1.1 % (0.0-0.5); LYMPH# 0.53 X1000 (1.2-3.4); LYMPH% 2.3 % (20.5-51.1); MCH 29.2 PG (27-31); MCHC 31.6 g/dL (33-37); MCV 92.4 FL (81-99); MONO# 0.71 X1000 (0.11-0.59); MPV 9.8 FL (7.4-10.4); NEUT# 21.87 X1000 (1.4-6.5); NEUT% 93.5 % (42.2-75.2); PLT 344 X1000 (130-400); RBC 3.29 XMIL (4.2-5.4); RDW 14.3 % (11.5-14.5)
[2019-06-16 15:13] LABS: AGAP 17; ALB/GLOB RATIO 1.2; ALBUMIN 3.2 g/dL (3.5-5.0); ALKALINE PHOSPHATASE 82 U/L (32-104); BUN 23 mg/dL (8-22); CALCIUM 9.6 mg/dL (8.8-10.2); CHLORIDE 96 mmol/L (98-107); COSMO 279; CREATININE 0.9 mg/dL (0.5-0.9); ESTIMATED GFR > 60; GLUCOSE 164 mg/dL (70-104); GOT 22 U/L (10-30); GPT 14 U/L (10-36); POTASSIUM 4.2 mmol/L (3.5-5.1); SODIUM 136 mmol/L (136-145); TCO2 23 mmol/L (25-35); TOTAL BILIRUBIN 0.47 mg/dL (0.20-1.00); TOTAL PROTEIN 5.9 g/dL (6.3-8.3)
[2019-06-16] MEDS: DILAUDID IV PRN ×3 (15:21→21:18)
[2019-06-16] MEDS: ZOFRAN IV PRN ×2 (15:22→18:57)
--- NOTE | 2019-06-16 15:48 | HISTORY AND PHYSICAL ---
PRIMARY CARE PHYSICIANS: Dr. Toni Vences. CHIEF COMPLAINT: Left lower extremity pain. HISTORY OF PRESENT ILLNESS: This is a 68-year-old female with a history of atherosclerosis, peripheral vascular disease, hypertension, who is 6 days status post left femoral-popliteal vein bypass, she comes in today complaining of pain. She describes this pain as a crampy type pain that is primarily in her calf and foot. Doppler pulses revealed a very faint monophasic dorsalis pedis as well as posterior tibial. She has been evaluated by Dr. Arian Hoffman while in the emergency room. PAST MEDICAL HISTORY: 1. Atherosclerosis. 2. Peripheral vascular disease. 3. Status post right [id number] amputation. FAMILY HISTORY: Her mother and sister have heart disease, her mother has hypertension. SOCIAL HISTORY: She is , she lives with her . She denies any illicit drug use. She has a 20 pack-year history of smoking stopping in 2013 at age 62. She does drink alcohol occasionally on a social basis. ALLERGIES: No known drug allergies. HOME MEDICATIONS: A list will be obtained by the nursing staff and once verified will review and restart as appropriate. REVIEW OF SYSTEMS: Discussed with patient with pertinent positives stated in the HPI. She denied any syncope, dizziness, chest pain, palpitations, shortness of breath, cough, fever, chills, any night sweats, recent weight loss or weight gain, any nausea, vomiting, diarrhea, constipation, black or bloody vomitus or stools hematuria dysuria frequency urgency. PHYSICAL EXAMINATION: GENERAL: This is a 68-year-old female who is sitting up on the stretcher in the emergency room in mild distress. HEENT: Head is normocephalic, atraumatic. Mucous membranes are moist. NECK: Supple with trachea midline. CARDIOVASCULAR: Regular rate and rhythm. S1 and S2 are appreciated. No murmur. PULMONARY: Breath sounds are clear with no increased work of breathing noted. Chest rises and falls symmetric respiration. Chest wall is nontender to palpation. GASTROINTESTINAL: Abdomen soft, nontender, nondistended with bowel sounds in all 4 quadrants. NEUROLOGIC: She is alert, oriented x3. SKIN: Warm and dry. EXTREMITIES: She is noted to be status post right above the knee amputation, left lower extremity incision to left leg is intact is healing well. There is no drainage, no redness. Doppler pulses are faint to posterior tibial and dorsalis pedis on the left. LABS: WBC is 23.4 with hemoglobin 9.6, hematocrit 30.4, platelets of 344,000. Sodium is 136, potassium 4.2, BUN 23, creatinine 0.9 with a glucose of 164. ASSESSMENT AND PLAN: 1. Occlusion of left femoral-popliteal bypass graft. 2. History of hypertension. 3. Leukocytosis. 4. Anemia . 5. History peripheral vascular disease. PLAN: The patient will be admitted to the [facility] for close monitoring. She will be placed on telemetry. Will order neurovascular checks q.4 hours to her left lower extremity. Heparin will be started per protocol. She will be NPO after midnight for surgery in the morning per Dr. Colby. We will recheck a BMP and CBC in the morning. We will use Dilaudid for pain with Zofran for nausea. Will update and confirm her home medications and will restart as appropriate. Further treatments pending hospital course. Plan was discussed with Dr. Cortes. Dictated by KAL Anne for Terence Cortes MD cc: KAL Anne MD
[2019-06-16] MEDS ORDERED: VANCOMYCIN IV PER PHARMACY MISC SCH (16:33)
--- NOTE | 2019-06-16 17:02 | Diag Imaging Result Doc PS360 ---
CHEST-1 VIEW - 06/16/2019 INDICATION: sepsis protocol COMPARISON: 03/30/2019 FINDINGS: The lungs are normally expanded and clear. Heart size and mediastinal contours are normal. No pneumothorax or pleural effusion. IMPRESSION: Negative exam. Electronically signed by Carlos Castro 06/16/2019 5:00 PM
--- NOTE | 2019-06-16 17:02 | HISTORY AND PHYSICAL ---
ADDENDUM REPORT I have seen and examined Ms. Leahy today. was at the bedside at the time of the encounter in the ER. Ms. Leahy is a 68-year-old female who has significant peripheral vascular disease. She is status post a right above-knee amputation and she just underwent a left femoral popliteal in situ bypass with Dr. Colby on 06/10/2019. She said after the surgery she was doing well until just yesterday she started having a lot of pains in the left lower extremity. She could hardly move it and came to the emergency room today. PHYSICAL EXAMINATION: Vitals shows a pulse of 99. The rest of other vitals are within normal range. Physical exam for most part is unremarkable except for the left lower extremity, which has incision in the medial thigh as well as medial to the distal thigh medially which has and incision, which looks well affronted, however it has minimal erythematous changes. It is extremely tender. The patient is able to wiggle the toes, is able to move. I was not able to feel any pulse in the dorsalis pedis, but there was no obvious color changes and patient did not have any motor deficit LABORATORY DATA: Shows WBC is up to 23.40. Chemistry shows a bicarb of 23 with a gap of 17. ASSESSMENT: 1. Suspected occlusion of the left femoral popliteal in situ bypass. The patient has been started on IV heparin drip and she will be admitted to step-down unit. Surgery has already been consulted and there is a plan for possible reintervention in the morning. 2. History of severe bilateral peripheral vascular disease. 3. Leukocytosis concerning for thrombophlebitis at the site of the surgery. We have started the patient on antibiotics. We will get her blood cultures and we will make more further decisions depending on the culture results and her clinical progress. 4. History of hypertension. 5. Status post right above-knee amputation noted. Please refer to the details of the history and physical that has been dictated by the LEAD PASTOR in the chart. cc: Terence Cortes MD
[2019-06-16] MEDS: NS 1,000 ML IV SCH (17:26)
[2019-06-16] MEDS: MAXIPIME 1 GM in NS 50 ML IV SCH (17:27)
[2019-06-16] MEDS ORDERED: VANCOMYCIN 1,350 MG in NS 250 ML IV ONE (17:30)
[2019-06-16] MEDS: NORCO-10 PO PRN (18:48)
[2019-06-16] MEDS: NEURONTIN PO SCH (18:48)
[2019-06-17] MEDS: DILAUDID IV PRN ×3 (00:28→09:29)
[2019-06-17] MEDS: MAXIPIME 1 GM in NS 50 ML IV SCH ×4 (00:29→23:44)
[2019-06-17] MEDS ORDERED: HEPARIN IV ONE (02:28)
[2019-06-17] MEDS ORDERED: HEPARIN 25,000 UNITS/D5W 25,000 UNIT/250 ML IV.SOLN IV SCH (02:33)
[2019-06-17] MEDS: NS 1,000 ML IV SCH ×4 (02:59→23:43)
[2019-06-17] MEDS: NEURONTIN PO SCH ×5 (03:16→20:08)
[2019-06-17] MEDS: NORCO-10 PO PRN ×2 (03:18→09:30)
[2019-06-17 07:04] LABS: AGAP 14; BUN 31 mg/dL (8-22); CALCIUM 8.9 mg/dL (8.8-10.2); CHLORIDE 100 mmol/L (98-107); COSMO 278; CREATININE 0.9 mg/dL (0.5-0.9); ESTIMATED GFR > 60; GLUCOSE 124 mg/dL (70-104); POTASSIUM 3.6 mmol/L (3.5-5.1); SODIUM 135 mmol/L (136-145); TCO2 21 mmol/L (25-35)
--- NOTE | 2019-06-17 07:14 | GENERAL SURGERY PROGRESS NOTE ---
DATE: 06/17/2019 SUBJECTIVE/OBJECTIVE: Ms. Leahy came in yesterday complaining of pain in her left thigh. She was admitted with suspicion for thrombosis of her graft. Her white count is noted to be 23,000. She does have some swelling and discoloration of her medial thigh. She does have Doppler flow that is heard in her graft, Doppler flow in the dorsalis pedis as well. The leg is certainly not as warm as it was when she left. PLAN: The plan will be to explore her wound today, do thrombectomy and/or revision as needed. cc: Topher Colby MD
[2019-06-17 07:23] LABS: BASO# 0.02 X1000 (0.0-0.2); BASO% 0.1 % (0.0-0.8); EOS# 0.01 X1000 (0.0-0.7); EOS% 0.1 % (0.0-10.0); HEMATOCRIT 24.2 % (37.0-47.0); HEMOGLOBIN 7.6 g/dL (12.0-16.0); IMM GRAN# 0.06 X1000 (0.0-0.04); IMM GRAN% 0.4 % (0.0-0.5); LYMPH# 0.54 X1000 (1.2-3.4); LYMPH% 3.9 % (20.5-51.1); MCH 29.1 PG (27-31); MCHC 31.4 g/dL (33-37); MCV 92.7 FL (81-99); MONO# 0.82 X1000 (0.11-0.59); NEUT# 12.24 X1000 (1.4-6.5); NEUT% 89.5 % (42.2-75.2); PLT 270 X1000 (130-400); RBC 2.61 XMIL (4.2-5.4); RDW 14.2 % (11.5-14.5); WBC 13.69 X1000 (4.8-10.8)
[2019-06-17 07:38] LABS: LYMPHS 6 % (21-51); MONO 6 % (1-9); SEGS 88 % (42-75)
[2019-06-17] MEDS: CRESTOR PO SCH (09:25)
[2019-06-17] MEDS ORDERED: DIPRIVAN 1% ONE (10:22)
[2019-06-17] MEDS ORDERED: FENTANYL ONE (10:23)
[2019-06-17] MEDS ORDERED: QUELICIN (DOSE) ONE (10:27)
[2019-06-17] MEDS ORDERED: XYLOCAINE-MPF 2% ONE (10:27)
[2019-06-17] MEDS ORDERED: MAXIPIME ONE (10:40)
[2019-06-17] MEDS ORDERED: KEFZOL ONE (11:03)
[2019-06-17] MEDS ORDERED: HEPARIN ONE ×3 (11:04→11:12)
[2019-06-17] MEDS ORDERED: PAPAVERINE ONE ×2 (11:04→12:26)
[2019-06-17] MEDS ORDERED: NS 1,000 ML ONE ×2 (11:04→11:13)
[2019-06-17] MEDS ORDERED: NEO-SYNEPHRINE ONE ×2 (11:27)
[2019-06-17] MEDS ORDERED: EPHEDRINE ONE (11:29)
[2019-06-17] MEDS ORDERED: HEPARIN (DOSE) ONE (11:38)
[2019-06-17] MEDS ORDERED: NORCURON ONE (11:41)
[2019-06-17] MEDS ORDERED: ROBINUL ONE (12:27)
[2019-06-17] MEDS ORDERED: NEOSTIGMINE ONE (12:28)
[2019-06-17 12:37] LABS: URINE SOURCE CATH
[2019-06-17 13:23] LABS: BILIRUBIN URINE NEGATIVE (NEGATIVE); BLOOD URINE NEGATIVE (NEGATIVE); COLOR YELLOW; GLUCOSE URINE NEGATIVE (NEGATIVE); KETONE URINE TRACE mg/dL (NEGATIVE); LEUKOCYTES URINE NEGATIVE (NEGATIVE); NITRITE URINE NEGATIVE (NEGATIVE); PH URINE 5.5; PROTEIN URINE 30 mg/dL (NEGATIVE); SP GRAVITY URINE 1.025; TURBIDITY URINE HAZY (CLEAR); UROBILINOGEN URINE NORMAL (NORMAL)
[2019-06-17 13:32] LABS: UR EPITHELIAL CELLS <10 /HPF (<10); URINE BACTERIA NEGATIVE /HPF; URINE RBC <10 /HPF (<10); URINE WBC <10 /HPF (<10)
--- NOTE | 2019-06-17 14:27 | PROGRESS NOTE ---
DATE: 06/17/2019 SUBJECTIVE: Today Ms. Leahy refers to be doing fairly okay. Still has a lot of pain in the left lower extremity. She is pending intervention by Vascular Surgery. OBJECTIVE: Vital Signs: Blood pressure was 98/57 with a pulse of 110, respirations 15, temperature 98.3 degrees. General: Ms. Leahy is a 68-year-old female. She was in bed in no distress. HEENT: Mucosa was pink and moist. Anicteric. Acyanotic. Neck: Supple. Chest: Good air entry bilateral. Did not hear any crepitations. No rhonchi. Cardiovascular: Slightly tachycardic but no murmurs, no rubs, no gallops. GI: Abdomen is soft. Bowel sounds present. Extremities: There is a right below the knee amputation. The left lower extremity still has some tenderness and redness around the previous surgical site in the medial thigh. The distal pulses are extremely low, but I think they are palpable and the foot on the whole looks viable. LABORATORY DATA: WBC is down to 13.69, hemoglobin is 7.6, platelet count of 270,000. Chemistry is also reviewed and is unremarkable. So far blood cultures are pending. ASSESSMENT: 1. Suspected occlusion of the left femoral popliteal in situ bypass. The patient is still on heparin drip and is pending surgery today. 2. Severe bilateral peripheral vascular disease. 3. Sepsis, presumably from the surgical site. The patient is pending intervention today. Hopefully, we can get some cultures from there as well. For now, she is on broad-spectrum IV antibiotic coverage. 4. Hypertension, stable. 5. Status post right above knee amputation noted. 6. Normocytic anemia. The patient might need blood transfusion. Hopefully during surgery that decision will be made. 7. Lactic acidosis has improved with fluid resuscitation. cc: Terence Cortes MD
--- NOTE | 2019-06-17 15:23 | OPERATIVE NOTE ---
PROCEDURE DATE: 06/17/2019 PREOPERATIVE DIAGNOSIS: Thrombosis of the vein graft. POSTOPERATIVE DIAGNOSES: 1. Thrombosis of the vein graft. 2. Hematoma of the distal medial thigh 3. Multiple arteriovenous fistulae. 4.Bleeding branch of vein graft PRIMARY PROCEDURES: 1. Open thrombectomy of the vein graft. 2. Evacuation of distal thigh hematoma. 3. Suture repair of bleeding vein graft. 4. Ligation of multiple AV fistulae. SURGEON: Topher Colby MD. CASH APPLICATION CLERK: Omar Parkinson RN. DESCRIPTION OF PROCEDURE: After satisfactory general endotracheal anesthesia was achieved, the left leg was prepped and draped in a sterile fashion. We opened the proximal incision, exposed the vein graft, and a pulse was noted within the vein graft. Vessel loops were passed around it. We then opened the distal medial thigh and we encountered a large hematoma. We evacuated the hematoma until we could identify the vein graft. We identified a bleeding point off the distal vein graft right before the anastomosis and it was bleeding and we placed a 6-0 Prolene figure-of- eight stitch that stopped this bleeding. I then gave the patient 5000 units of heparin. After it circulated for 5 minutes, I did a transverse vein graftotomy proximally and passed a 3 Stephanie. It went easily down the vein graft and we evacuated the old blood. Minimal clot was obtained. We then closed the vein graftotomy with interrupted 6-0 Prolene stitches. I then shot a graftogram using a 19 butterfly. This showed multiple AV fistulae off the vein graft and we marked each one. There was flow in through the distal anastomosis into the popliteal. We then cut down on these 3 or 4 fistulae and clipped off each one of them. We then gave the patient 120 mg of papaverine diluted to 10 mL and squirted it down the vein graft through of the 19 butterfly proximally. We shot a completion arteriogram which showed resolution of the AV fistulae, no evidence of bleeding, flow down the vein graft into the popliteal artery and down to the trifurcation with 2 vessel runoff to the foot. We were satisfied that we had done adequate to it. Pulse was noted throughout the vein graft, even into the popliteal. We then placed a Casa drain into the popliteal space because of the large hematoma that had been present. We then closed the subcutaneous tissue with interrupted 3-0 Polysorb. The skin was closed with coby. Sterile dressings were applied. She tolerated it well and was sent to the recovery room in satisfactory condition. cc: Topher Colby MD MTDD
[2019-06-17 15:38] LABS: HEMATOCRIT 31.1 % (37.0-47.0); HEMOGLOBIN 9.8 g/dL (12.0-16.0)
--- NOTE | 2019-06-17 19:56 | GENERAL SURGERY PROGRESS NOTE ---
DATE: 06/17/2019 DATE AND TIME: On 06/17/2019 at 6:30 p.m. She is doing generally well. Her leg is warm. Drainage has been negligible. Her hemoglobin is 9.8 and 31 posttransfusion. We will keep her on Eliquis and aspirin for now. cc: Topher Colby MD
[2019-06-17] MEDS: ELIQUIS PO SCH (20:08)
[2019-06-18] MEDS: NEURONTIN PO SCH ×6 (02:07→21:34)
[2019-06-18] MEDS ORDERED: VANCOMYCIN 1,100 MG in NS 250 ML IV SCH (05:00)
[2019-06-18] MEDS ORDERED: VANCOMYCIN 1 GM/NS 1 GM/250 ML IVPB IV SCH (06:00)
[2019-06-18] MEDS: NORCO-10 PO PRN ×3 (06:18→21:28)
[2019-06-18 06:43] LABS: BASO# 0.01 X1000 (0.0-0.2); BASO% 0.1 % (0.0-0.8); EOS# 0.08 X1000 (0.0-0.7); EOS% 0.7 % (0.0-10.0); HEMATOCRIT 28.5 % (37.0-47.0); HEMOGLOBIN 9.2 g/dL (12.0-16.0); IMM GRAN# 0.04 X1000 (0.0-0.04); IMM GRAN% 0.4 % (0.0-0.5); LYMPH# 0.33 X1000 (1.2-3.4); LYMPH% 2.9 % (20.5-51.1); MCH 28.8 PG (27-31); MCHC 32.3 g/dL (33-37); MCV 89.1 FL (81-99); MONO# 0.35 X1000 (0.11-0.59); MONO% 3.1 % (1.7-9.3); MPV 10.1 FL (7.4-10.4); NEUT# 10.47 X1000 (1.4-6.5); NEUT% 92.8 % (42.2-75.2); PLT 270 X1000 (130-400); RDW 15.4 % (11.5-14.5); WBC 11.28 X1000 (4.8-10.8)
[2019-06-18 06:50] LABS: AGAP 9; BUN 24 mg/dL (8-22); CALCIUM 8.3 mg/dL (8.8-10.2); CHLORIDE 102 mmol/L (98-107); COSMO 270; CREATININE 0.5 mg/dL (0.5-0.9); ESTIMATED GFR > 60; GLUCOSE 83 mg/dL (70-104); POTASSIUM 3.5 mmol/L (3.5-5.1); SODIUM 133 mmol/L (136-145); TCO2 22 mmol/L (25-35)
[2019-06-18] MEDS: NS 1,000 ML IV SCH (07:55)
[2019-06-18] MEDS: MAXIPIME 1 GM in NS 50 ML IV SCH (07:55)
[2019-06-18] MEDS: CRESTOR PO SCH (08:57)
[2019-06-18] MEDS: PLAVIX PO SCH (08:57)
[2019-06-18] MEDS: ASPIRIN PO SCH (08:58)
[2019-06-18] MEDS: ELIQUIS PO SCH ×2 (08:58→21:28)
[2019-06-18] MEDS ORDERED: ASPIRIN PO SCH (09:00)
--- NOTE | 2019-06-18 15:02 | PROGRESS NOTE ---
DATE: 06/18/2019 SUBJECTIVE: Today, Ms. Leahy refers to be doing a lot better. According to her, the left lower extremity feels less painful than before. Ms. Leahy underwent an open thrombectomy of the vein graft, evacuation of a distal thigh hematoma, suture repair of a bleeding vein graft and ligation of multiple AV fistula yesterday with Dr. Colby. OBJECTIVE: Vital Signs: Clinically, her current vitals reveal blood pressure is 100/49, pulse of 116, respiration is 21, temperature 98.1 degrees. General exam: Ms. Leahy is a 68-year-old female. She is in bed, no distress. HEENT: Mucosa is pink and moist. Anicteric. Acyanotic. Neck: Neck is supple. Chest: Good air entry bilaterally. There were no crepitations, no rhonchi. Cardiovascular: Regular rate and rhythm. No murmurs, no rubs, no gallops. GI/abdomen: Soft, nontender. Bowel sounds present. Extremities: The right lower extremity has an above-knee amputation. The left lower extremity has a recent sterile dressing over the surgical exploration site. There is a STEPHANIE drain in place, which is draining some serosanguineous fluid. Central nervous system: Patient is awake, alert, oriented. Pulses in the left lower extremity is present, however it is slightly reduced in intensity. LABORATORY DATA: WBC is down to 11.28, hemoglobin is 9.2, platelet count of 270,000. Chemistry is also reviewed and unremarkable. The patient blood cultures have been 48 hours negative. The left leg culture is showing a gram-positive cocci. ASSESSMENT: 1. Occlusion of the left femoral popliteal in situ bypass. It appears this was due to an extrinsic compression by hematoma. The hematoma was evacuated yesterday, and other vascular surgical interventions were performed. The patient is feeling a lot better now. 2. Severe bilateral peripheral vascular disease. Patient is on aspirin and Eliquis at this point. 3. Sepsis, presumably due to an infected hematoma. As I said, hematoma is evacuated. The patient's white cell count is trending down. The culture from the surgical specimen seems to be growing gram-positive cocci. We have therefore discontinued the gram-negative coverage. 4. Hypertension is controlled. 5. Status post right above knee amputation noted. 6. Normocytic anemia. Patient is status post 2 packed red blood cell transfusions. Hemoglobin and hematocrit this morning is up to 9.2. 7. Lactic acidosis from sepsis on admission, resolved. PLAN: So, in general, I think Ms. Leahy is doing a lot better. She is feeling better than days before. She is day 1 post vascular surgery and evacuation of a hematoma. We are going to be waiting on the ID and sensitivity of the gram-positive cocci and tailor the antibiotics accordingly. I have discontinued the cefepime. cc: Terence Cortes MD
[2019-06-18] MEDS: DILAUDID IV PRN (15:35)
--- NOTE | 2019-06-18 18:24 | GENERAL SURGERY PROGRESS NOTE ---
DATE: 06/18/2019 SUBJECTIVE/OBJECTIVE: White count is down to 11,000, hemoglobin 9.2. Her left foot is warm. T- max is 99.9. Her culture from her hematoma is growing gram-positive cocci. ASSESSMENT/PLAN: So, we will leave her drain in for now. We will remove her [place] tomorrow. She can get up in the chair, and she can bear weight on her leg as she can tolerate it. [facility] will cover in my absence. I do think she needs to be discharged home on a platelet inhibitor along with Eliquis, and we will keep the Eliquis until the vein graft is stabilized. cc: Topher Colby MD
[2019-06-19] MEDS: DILAUDID IV PRN ×2 (00:03→23:23)
[2019-06-19] MEDS: NEURONTIN PO SCH ×7 (00:03→20:24)
[2019-06-19] MEDS: NORCO-10 PO PRN ×3 (02:56→15:52)
[2019-06-19 06:49] LABS: HEMOGLOBIN 8.4 g/dL (12.0-16.0); MCH 28.6 PG (27-31); MCHC 32.3 g/dL (33-37); MCV 88.4 FL (81-99); MPV 9.5 FL (7.4-10.4); RBC 2.94 XMIL (4.2-5.4); RDW 14.8 % (11.5-14.5); WBC 17.17 X1000 (4.8-10.8)
[2019-06-19 06:55] LABS: AGAP 9; BUN 14 mg/dL (8-22); CALCIUM 7.9 mg/dL (8.8-10.2); CHLORIDE 104 mmol/L (98-107); COSMO 273; CREATININE 0.3 mg/dL (0.5-0.9); ESTIMATED GFR > 60; GLUCOSE 77 mg/dL (70-104); PHOSPHORUS 1.9 mg/dL (2.7-4.5); POTASSIUM 3.1 mmol/L (3.5-5.1); SODIUM 137 mmol/L (136-145); TCO2 24 mmol/L (25-35)
[2019-06-19] MEDS ORDERED: POTASSIUM PHOSPHATE 40 MEQ in NS 250 ML IV ONE (07:45)
[2019-06-19] MEDS: CRESTOR PO SCH (08:18)
[2019-06-19] MEDS: ELIQUIS PO SCH ×2 (08:19→20:24)
[2019-06-19] MEDS: PLAVIX PO SCH (08:19)
[2019-06-19] MEDS: ASPIRIN PO SCH (08:19)
[2019-06-19] MEDS: KEFZOL 2 GM/D5W 2 GM/50 ML IVPB IV SCH ×3 (08:28→23:20)
--- NOTE | 2019-06-19 08:54 | PROGRESS NOTE ---
DATE: 06/19/2019 SUBJECTIVE: This morning Ms. Leahy referred to be doing a lot better. The was at the bedside at the time of the encounter. She did refer that the left leg is swollen and they have changed the dressing over it multiple times because of draining. OBJECTIVE: Vital signs: Blood pressure is 136/68, pulse of 108, respiration is 22, temperature is 98.2 degrees. General: Ms. Leahy is a 68-year-old female. She is in bed, no distress. HEENT: Mucosa is pink and moist. Anicteric. Acyanotic. Neck: Supple. Chest: Good air entry bilaterally. There were no crepitations, no rhonchi. Cardiovascular: Regular rate and rhythm. No murmurs, no rubs, no gallops. Gastrointestinal: Abdomen was soft, nontender. Bowel sounds present. There is no hepatosplenomegaly. Extremities: Right lower extremity has an AKA. The left has sterile dressing over the recent surgical exploration site. STEPHANIE drain is in the calf and is draining some serosanguineous fluid. The thigh and the leg are minimally swollen from postsurgical changes. Central nervous system: Patient is awake, alert, oriented. LABORATORY DATA: WBC has gone up to 17.17 and hemoglobin is down to 8.4, platelet count is 289,000. Chemistry is also reviewed, potassium is 3.1 and phosphorus is 1.9. The patient's leg culture has grown strep pyogenes. ASSESSMENT: 1. Occlusion of the left femoral-popliteal in situ bypass secondary to extrinsic compression by hematoma. The hematoma has been successfully evacuated. 2. Severe bilateral peripheral vascular disease. 3. Sepsis secondary to an infected hematoma. The culture has grown strep pyogenes. WBC has gone up today. I have changed the antibiotic to Ancef for a more targeted therapy. 4. Hypertension, controlled. 5. Status post right above-knee amputation. Noted. 6. Normocytic anemia. Patient is status post 2 PRBC transfusion. Hemoglobin and hematocrit has dropped minimally today. We are going to continue keeping an eye on this. 7. Lactic acidosis from sepsis on admission, improved. 8. Electrolyte abnormality including hypokalemia and hypophosphatemia. We will replace. PLAN: In general, I think Ms. Leahy is doing well, has some postsurgical changes in the left thigh. The culture has grown strep pyogenes. White cell count has minimally elevated today. I have switched the antibiotics to Ancef for more targeted therapy. cc: Terence Cortes MD
--- NOTE | 2019-06-19 09:22 | GENERAL SURGERY PROGRESS NOTE ---
DATE: 06/19/2019 SUBJECTIVE: Patient seems to be doing okay. OBJECTIVE: Vital Signs: Patient is currently afebrile. Her vital signs are stable. General: No acute distress. Cardiovascular: Regular rate and rhythm. Lungs: Grossly clear. Extremities: Left leg appears to be perfused. STEPHANIE drain in place with 115 recorded out. Microbiology shows strep Group A in the wound, which is apparently pansensitive. ASSESSMENT AND PLAN: A 68-year-old female status post thrombectomy of femoral-popliteal bypass and drainage of hematoma. Postop state. At this time per Dr. Colby's request, recommend keep her on Eliquis, at least some kind of platelet inhibiting product like Plavix. We will keep the Ru-Romero drain in place and keep her on antibiotics until again a week. cc: Arian Hoffman MD
[2019-06-19] MEDS ORDERED: CALMOSEPTINE OINTMENT TOP PRN (20:10)
[2019-06-19] MEDS ORDERED: CALMOSEPTINE OINTMENT TOP SCH (21:00)
[2019-06-20] MEDS: NEURONTIN PO SCH ×4 (02:25→20:48)
[2019-06-20] MEDS: NORCO-10 PO PRN ×3 (04:43→23:11)
[2019-06-20 06:43] LABS: BASO# 0.03 X1000 (0.0-0.2); BASO% 0.2 % (0.0-0.8); EOS# 0.14 X1000 (0.0-0.7); EOS% 0.8 % (0.0-10.0); HEMATOCRIT 27.9 % (37.0-47.0); HEMOGLOBIN 9.2 g/dL (12.0-16.0); IMM GRAN# 0.52 X1000 (0.0-0.04); IMM GRAN% 2.9 % (0.0-0.5); LYMPH# 0.85 X1000 (1.2-3.4); LYMPH% 4.7 % (20.5-51.1); MCH 28.8 PG (27-31); MCV 87.2 FL (81-99); MONO# 0.97 X1000 (0.11-0.59); MONO% 5.4 % (1.7-9.3); MPV 9.5 FL (7.4-10.4); PLT 358 X1000 (130-400); RDW 14.4 % (11.5-14.5); WBC 17.91 X1000 (4.8-10.8)
[2019-06-20 07:17] LABS: LYMPHS 8 % (21-51); MONO 2 % (1-9); SEGS 86 % (42-75)
[2019-06-20 07:22] LABS: AGAP 11; BUN 10 mg/dL (8-22); CALCIUM 8.2 mg/dL (8.8-10.2); CHLORIDE 96 mmol/L (98-107); COSMO 267; CREATININE 0.4 mg/dL (0.5-0.9); ESTIMATED GFR > 60; GLUCOSE 92 mg/dL (70-104); PHOSPHORUS 1.7 mg/dL (2.7-4.5); POTASSIUM 2.9 mmol/L (3.5-5.1); PREALBUMIN < 3.0 mg/dL (20-40); SODIUM 134 mmol/L (136-145); TCO2 27 mmol/L (25-35)
--- NOTE | 2019-06-20 07:33 | GENERAL SURGERY PROGRESS NOTE ---
DATE: 06/20/2019 SUBJECTIVE: The patient seems to be doing okay. She did have some issues with her heart rate going up. Nursing reports some blistering noted on her leg with swelling. OBJECTIVE: Vital Signs: The patient is currently afebrile, with a heart rate in the 110s, blood pressure is stable. General Examination: No acute distress. Cardiovascular: Some mild tachycardia. Lungs: Grossly clear. Abdomen: Soft, nontender. Extremities: Swelling noted to the left lower extremity. Right lower extremity amputation is unchanged. Her foot feels perfused. She does have some blistering noted but overall, the foot appears better than it did on admission. ASSESSMENT AND PLAN: A 68-year-old female status post thrombectomy of femoropopliteal bypass and drainage of a hematoma. Postoperative state. At this time, continue current treatment. Continue her Eliquis and Plavix. She will need to go home on both of those. We will keep the Ru-Romero drain in place until at least tomorrow or later, and also depending on the drain output. We will keep her on antibiotics for right now. cc: Arian Hoffman MD
[2019-06-20] MEDS: CRESTOR PO SCH (08:36)
[2019-06-20] MEDS: PLAVIX PO SCH (08:36)
[2019-06-20] MEDS: KEFZOL 2 GM/D5W 2 GM/50 ML IVPB IV SCH ×3 (08:36→23:11)
[2019-06-20] MEDS: ASPIRIN PO SCH (08:36)
[2019-06-20] MEDS: ELIQUIS PO SCH ×2 (08:36→20:48)
[2019-06-20] MEDS ORDERED: POTASSIUM PHOSPHATE 60 MEQ in NS 250 ML IV ONE (09:48)
--- NOTE | 2019-06-20 14:05 | PROGRESS NOTE ---
DATE: 06/20/2019 SUBJECTIVE: This morning, Ms. Leahy refers to be doing well. However, she continues to complain of some pain in the left lower extremity and she said she feels some numbness as well in it. was at the bedside at the time of the encounter. OBJECTIVE: Vital Signs: Blood pressure is 118/57, pulse of 109, respirations are 15, temperature is 99.2 degrees. General Examination: Ms. Leahy is a 68-year-old, female. She is in bed. No distress. HEENT: Mucosa is pink and moist. Anicteric. Acyanotic. Neck: Supple. Chest: Good air entry bilaterally. There were no crepitations. No rhonchi. Cardiovascular: Tachycardic but regular. No murmurs, no rubs, no gallops. GI: Abdomen is soft. Bowel sounds present. There is no hepatosplenomegaly. Extremities: Right lower extremity has an AKA. The left, the thigh is remarkably more swollen. It is tender. When I removed the sterile dressing, the incision is affronted with clips but it looks swollen and there is mild darkish discoloration in the distal 1/3 of the wound, which is concerning for necrosis. The entire lower extremity seems swollen and slightly congested. The distal pulse on the left lower extremity is almost imperceptible. There is a STEPHANIE drain in the calf and it is draining some serosanguineous fluid. [employer]: The patient is awake, alert, and oriented. Laboratory Data: WBC is 17.91. Rest of the CBC is unremarkable. Chemistry is also reviewed. Potassium and phosphorus are low, and they are being replenished. ASSESSMENT: 1. Occlusion of left femoral popliteal in situ bypass by an extrinsic compression from a hematoma. Hematoma was successfully evacuated. The patient's lower extremity still seems swollen and congested. There is very little pulse if at all and I am concerned that she probably will need another revision of the vasculature of the lower extremities tomorrow. We will wait on Dr. Colby to evaluate her tomorrow and then go from there. 2. Severe bilateral peripheral vascular disease. Patient is on statin, clopidogrel, and Eliquis. 3. Sepsis secondary to an infected hematoma. Cultures were positive for Streptococcus pyogenes. The patient has been switched to Ancef. WBC continues to be high. We will continue to monitor. 4. Hypertension, controlled. 5. Status post right above-knee amputation. Noted. 6. Normocytic anemia. Patient is status post two units of packed red blood cell transfusion. Hemoglobin and hematocrit are stable. 7. Lactic acidosis from sepsis versus hypoperfusion from the left lower extremity, improved. We will, however, recheck this tomorrow since the leg continues to be remarkably swollen. 8. Electrolyte abnormality. We will continue to replace and follow. 9. Protein calorie malnutrition with a prealbumin of less than 3. The patient is on supplemental diet and nutrition is also on board. cc: Terence Cortes MD
[2019-06-20] MEDS: NEUTRA-PHOS PO SCH ×3 (15:39→20:48)
[2019-06-21] MEDS: DILAUDID IV PRN ×4 (00:25→16:06)
[2019-06-21 06:13] LABS: BASO# 0.08 X1000 (0.0-0.2); BASO% 0.6 % (0.0-0.8); EOS% 2.2 % (0.0-10.0); HEMATOCRIT 28.8 % (37.0-47.0); HEMOGLOBIN 9.3 g/dL (12.0-16.0); IMM GRAN# 1.06 X1000 (0.0-0.04); IMM GRAN% 7.8 % (0.0-0.5); LYMPH# 1.13 X1000 (1.2-3.4); LYMPH% 8.3 % (20.5-51.1); MCH 28.4 PG (27-31); MCHC 32.3 g/dL (33-37); MCV 87.8 FL (81-99); MONO% 8.8 % (1.7-9.3); MPV 9.4 FL (7.4-10.4); NEUT% 72.3 % (42.2-75.2); PLT 445 X1000 (130-400); RBC 3.28 XMIL (4.2-5.4); RDW 14.7 % (11.5-14.5); WBC 13.67 X1000 (4.8-10.8)
[2019-06-21 06:41] LABS: AGAP 9; ALB/GLOB RATIO 0.7; ALKALINE PHOSPHATASE 142 U/L (32-104); BUN 9 mg/dL (8-22); CALCIUM 7.8 mg/dL (8.8-10.2); CHLORIDE 100 mmol/L (98-107); COSMO 273; CREATININE 0.4 mg/dL (0.5-0.9); ESTIMATED GFR > 60; GLUCOSE 104 mg/dL (70-104); GOT 22 U/L (10-30); GPT 10 U/L (10-36); MAGNESIUM 1.8 mg/dL (1.5-2.7); PHOSPHORUS 2.5 mg/dL (2.7-4.5); POTASSIUM 3.6 mmol/L (3.5-5.1); SODIUM 137 mmol/L (136-145); TCO2 28 mmol/L (25-35); TOTAL BILIRUBIN 0.42 mg/dL (0.20-1.00)
[2019-06-21] MEDS: NEUTRA-PHOS PO SCH ×4 (08:30→21:33)
[2019-06-21] MEDS: CRESTOR PO SCH (08:30)
[2019-06-21] MEDS: NEURONTIN PO SCH ×3 (08:31→21:33)
[2019-06-21] MEDS: PLAVIX PO SCH (08:31)
[2019-06-21] MEDS: ELIQUIS PO SCH ×2 (08:31→21:33)
[2019-06-21] MEDS: ASPIRIN PO SCH (08:31)
[2019-06-21] MEDS: KEFZOL 2 GM/D5W 2 GM/50 ML IVPB IV SCH ×3 (08:31→22:35)
[2019-06-21] MEDS: NORCO-10 PO PRN ×2 (10:02→19:02)
--- NOTE | 2019-06-21 15:13 | PROGRESS NOTE ---
DATE: 06/21/2019 SUBJECTIVE: This morning Ms. Leahy refers to be doing well. She says she has been evaluated by surgery and they think the foot is doing well. OBJECTIVE: Vital signs: Blood pressure is 122/61, pulse of 116, respiration is 18, temperature 98.6 degrees. General: Ms. Leahy is a 68-year-old lady. She is in bed, no distress. HEENT: Mucosa is pink and moist. Anicteric. Acyanotic. Neck: Supple. Chest: Good air entry bilateral. There were no crepitations, no rhonchi. Cardiovascular: Regular rate and rhythm. There are no murmurs, no rubs, no gallops. GI: Abdomen is soft, nontender. Bowel sounds present. No hepatosplenomegaly. Extremities: There is a right AKA. The left lower extremity is completely swollen in entirety. The medial aspect has a sterile dressing. The distal pulses are almost imperceptible. STEPHANIE drain is still in place and the bottle has serosanguineous fluid. COMMUNICATIONS LEAD: Patient is awake, alert, and oriented. There is no focal deficit. LABORATORY DATA: WBC is down to 13.67. Hemoglobin and platelet count unremarkable. Chemistry is completely normal. ASSESSMENT: 1. Occlusion of the left femoral-popliteal in situ bypass by extrinsic compression from a hematoma. Hematoma has been evacuated. 2. Severe bilateral peripheral vascular disease. Patient is on statin, clopidogrel, and Eliquis. 3. Sepsis on presentation secondary to Streptococcus pyogenes infected hematoma. The patient is on Ancef. WBC is trending down. 4. Hypertension. Controlled. 5. Status post right above-knee amputation. Noted. 6. Protein calorie malnutrition with prealbumin of less than 3. The patient is on supplemental diet. 7. Lactic acidosis from sepsis. Resolved. PLAN: So in general, I think Ms. Leahy is doing fairly okay. White cell count is trending down. According to her, surgery has evaluated her this morning and found the foot to be doing okay. So we are going to continue with the IV antibiotics and current medications and wait for further recommendations from surgery. cc: Terence Cortes MD
[2019-06-22] MEDS: KEFZOL 2 GM/D5W 2 GM/50 ML IVPB IV SCH ×3 (06:13→23:18)
[2019-06-22 06:19] LABS: BASO# 0.04 X1000 (0.0-0.2); BASO% 0.3 % (0.0-0.8); EOS% 3.2 % (0.0-10.0); HEMATOCRIT 27.5 % (37.0-47.0); HEMOGLOBIN 8.9 g/dL (12.0-16.0); IMM GRAN# 0.93 X1000 (0.0-0.04); IMM GRAN% 7.5 % (0.0-0.5); LYMPH# 1.08 X1000 (1.2-3.4); LYMPH% 8.7 % (20.5-51.1); MCH 28.3 PG (27-31); MCHC 32.4 g/dL (33-37); MCV 87.6 FL (81-99); MONO% 5.6 % (1.7-9.3); MPV 9.1 FL (7.4-10.4); NEUT# 9.27 X1000 (1.4-6.5); NEUT% 74.7 % (42.2-75.2); PLT 505 X1000 (130-400); RBC 3.14 XMIL (4.2-5.4); RDW 14.4 % (11.5-14.5); WBC 12.42 X1000 (4.8-10.8)
[2019-06-22 06:30] LABS: AGAP 8; ALBUMIN 2.1 g/dL (3.5-5.0); BUN 8 mg/dL (8-22); CHLORIDE 94 mmol/L (98-107); COSMO 257; CREATININE 0.3 mg/dL (0.5-0.9); ESTIMATED GFR > 60; GLUCOSE 97 mg/dL (70-104); PHOSPHORUS 2.3 mg/dL (2.7-4.5); POTASSIUM 3.6 mmol/L (3.5-5.1); SODIUM 129 mmol/L (136-145); TCO2 27 mmol/L (25-35)
[2019-06-22 06:58] LABS: LYMPHS 14 % (21-51); MONO 2 % (1-9); SEGS 78 % (42-75)
[2019-06-22] MEDS: NEURONTIN PO SCH ×3 (08:27→20:56)
[2019-06-22] MEDS: NEUTRA-PHOS PO SCH ×4 (08:27→20:54)
[2019-06-22] MEDS: PLAVIX PO SCH (08:27)
[2019-06-22] MEDS: ELIQUIS PO SCH ×2 (08:27→20:54)
[2019-06-22] MEDS: CRESTOR PO SCH (08:28)
[2019-06-22] MEDS: NORCO-10 PO PRN ×2 (08:28→15:46)
[2019-06-22] MEDS: ASPIRIN PO SCH (08:28)
--- NOTE | 2019-06-22 16:09 | PROGRESS NOTE ---
DATE: 06/22/2019 SUBJECTIVE: Ms. Leahy is feeling a little better. She says her left leg is just kind of numb. Remains afebrile. OBJECTIVE: Vital signs: Temperature 97.6 degrees, pulse 106, respirations 20, blood pressure 120/64. HEENT: Pupils are equal and round. Lungs: Clear in all lung agarwal. Cardiovascular: Regular rhythm and rate without murmur or S3. Abdomen: Soft. Skin: Warm and dry. Urine output is 3300 mL. ASSESSMENT AND PLAN: 1. Occlusion of left femoral-popliteal in situ bypass by extrinsic compression from a hematoma. Hematoma has been evacuated. 2. Severe bilateral peripheral vascular disease. Patient is on statin, Plavix, and Eliquis. 3. Sepsis on presentation secondary to Streptococcus pyogenes infected hematoma. The patient is on Ancef. White blood cell count is coming down. Doing better clinically. 4. Hypertension, controlled. 5. Status post right cnanh-vca-knnm amputation. 6. Protein calorie malnutrition. Pre-albumin less than 3. The patient is on supplements, trying to improve protein calorie state. 7. Lactic acidosis from sepsis has resolved. Seems to be improving. REVIEW OF ORDERS: Is getting Dilaudid 0.5 mg IV q.3 hours p.r.n., Eliquis 5 mg b.i.d., aspirin 81 mg a day, Plavix 75 mg a day, Neurontin 100 mg p.o. t.i.d., cefazolin 2 g IV q.8 hours, Crestor 5 mg a day. LABORATORY: Review of lab from today, white count is 12,420, hematocrit is 27, hemoglobin 8.9, platelet count 505,000. Sodium 129, potassium 3.6, chloride 94, BUN 8, creatinine 0.3, phosphorus was 2.3. We will continue to watch her electrolytes. cc: Giovanny Villarreal MD
[2019-06-22] MEDS: DILAUDID IV PRN (20:53)
[2019-06-23] MEDS: NORCO-10 PO PRN ×3 (06:04→23:36)
[2019-06-23] MEDS: KEFZOL 2 GM/D5W 2 GM/50 ML IVPB IV SCH ×3 (06:05→22:06)
[2019-06-23 06:13] LABS: AGAP 10; ALB/GLOB RATIO 0.7; ALKALINE PHOSPHATASE 112 U/L (32-104); BUN 9 mg/dL (8-22); CHLORIDE 100 mmol/L (98-107); COSMO 271; CREATININE 0.3 mg/dL (0.5-0.9); ESTIMATED GFR > 60; GLUCOSE 106 mg/dL (70-104); GOT 26 U/L (10-30); GPT 9 U/L (10-36); MAGNESIUM 1.9 mg/dL (1.5-2.7); PHOSPHORUS 2.7 mg/dL (2.7-4.5); POTASSIUM 3.9 mmol/L (3.5-5.1); SODIUM 136 mmol/L (136-145); TCO2 26 mmol/L (25-35); TOTAL BILIRUBIN 0.27 mg/dL (0.20-1.00); TOTAL PROTEIN 4.8 g/dL (6.3-8.3)
[2019-06-23] MEDS: PLAVIX PO SCH (08:50)
[2019-06-23] MEDS: CRESTOR PO SCH (08:50)
[2019-06-23] MEDS: ELIQUIS PO SCH ×2 (08:50→20:59)
[2019-06-23] MEDS: NEURONTIN PO SCH ×3 (08:50→20:59)
[2019-06-23] MEDS: NEUTRA-PHOS PO SCH ×4 (08:51→21:00)
[2019-06-23] MEDS: ASPIRIN PO SCH (08:51)
--- NOTE | 2019-06-23 09:18 | PROGRESS NOTE ---
DATE: 06/23/2019 SUBJECTIVE: Ms. Nelda Leahy is status post thrombectomy of her left leg femoral popliteal in situ graft. A drain was placed in the wound at the time of surgery, and I removed that today. We took down all her dressings. It appears that she still has flow through this graft. Her left foot is warm. There is still some swelling of her left leg, but that is improving. Her wound going down her leg is intact, and there was no evidence of cellulitis or infection. She is on IV antibiotics and her white blood cell count has been going down. She still has pain in her leg. She has been hesitant to put weight on her leg, but we are going to increase her activity and get physical therapy involved so that we can work to discharge her home under the care of her . cc: Chica Major MD
--- NOTE | 2019-06-23 12:59 | PROGRESS NOTE ---
DATE: 06/23/2019 SUBJECTIVE: Ms. Nelda Leahy is feeling much better. She was eating lunch, and no nausea. Leg with less pain, less swelling. OBJECTIVE: Vital Signs: Temp 97.9 degrees, pulse 99, respirations 18, blood pressure 121/61. HEENT: Pupils are equal and round. Lungs: Clear in all lung agarwal. Cardiovascular: Regular rhythm and rate without murmur or S3. Urine output is 4300 mL. ASSESSMENT AND PLAN: 1. Occlusion of left femoral popliteal in situ bypass with extensive compression from hematoma. Doing much better. Hematoma has been evacuated. 2. Severe bilateral peripheral vascular disease, on statin, Plavix, and Eliquis. 3. Sepsis on presentation secondary to Streptococcus pyogenes infection in the hematoma. She is on Ancef, doing well. 4. Hypertension, well controlled. 5. Status post vpevs-tws-ztol amputation. 6. Protein calorie malnutrition. Prealbumin of less than 3. Patient on supplements. 7. Lactic acidosis from sepsis. This has resolved. REVIEW OF ORDERS: I do not see any change. REVIEW OF LAB: Looks good. White count is down, hematocrit 27, hemoglobin 8.9, which is stable. Electrolytes: Sodium 136, potassium 3.9, chloride 100, BUN 9, creatinine 0.3. cc: Giovanny Villarreal MD
[2019-06-23] MEDS: DILAUDID IV PRN (22:06)
[2019-06-24] MEDS: KEFZOL 2 GM/D5W 2 GM/50 ML IVPB IV SCH ×3 (06:06→22:57)
[2019-06-24 06:33] LABS: AGAP 9; ALB/GLOB RATIO 0.7; ALBUMIN 2.2 g/dL (3.5-5.0); ALKALINE PHOSPHATASE 123 U/L (32-104); BUN 9 mg/dL (8-22); CALCIUM 8.3 mg/dL (8.8-10.2); CHLORIDE 101 mmol/L (98-107); COSMO 268; CREATININE 0.3 mg/dL (0.5-0.9); ESTIMATED GFR > 60; GLUCOSE 91 mg/dL (70-104); GOT 26 U/L (10-30); GPT 10 U/L (10-36); POTASSIUM 4.2 mmol/L (3.5-5.1); SODIUM 135 mmol/L (136-145); TCO2 25 mmol/L (25-35); TOTAL BILIRUBIN 0.29 mg/dL (0.20-1.00); TOTAL PROTEIN 5.4 g/dL (6.3-8.3)
[2019-06-24] MEDS: NORCO-10 PO PRN ×3 (07:35→20:15)
[2019-06-24] MEDS: PLAVIX PO SCH ×2 (07:35→08:57)
[2019-06-24] MEDS: NEUTRA-PHOS PO SCH ×5 (07:35→20:15)
[2019-06-24] MEDS: CRESTOR PO SCH ×2 (07:36→08:58)
[2019-06-24] MEDS: ELIQUIS PO SCH ×3 (07:36→20:15)
[2019-06-24] MEDS: NEURONTIN PO SCH ×3 (07:36→20:15)
[2019-06-24] MEDS: ASPIRIN PO SCH ×2 (07:37→08:57)
[2019-06-24] MEDS: DILAUDID IV PRN ×2 (12:53→21:21)
--- NOTE | 2019-06-24 17:14 | PROGRESS NOTE ---
DATE: 06/24/2019 SUBJECTIVE: Ms. Leahy feels much better. Leg feels better. Incision looks good. There is a little bit of drainage from incision, but the swelling has gone down in the left leg. OBJECTIVE: Vital Signs: Remains afebrile, temperature 96.6 degrees, pulse 100, respirations 19, blood pressure 134/72. HEENT: Pupils are equal and round. Neck: No distended neck veins. Lungs: Clear in all lung agarwal. Cardiovascular: Regular rhythm and rate without murmur or S3. Output: Urine output is 4000 mL. ASSESSMENT AND PLAN: 1. Occlusion of the left femoral popliteal in situ bypass with extensive compression from hematoma, doing much better. Hematoma was evacuated. 2. Severe bilateral peripheral vascular disease, on statin, Plavix, and Eliquis. 3. Sepsis on presentation secondary to Streptococcus pyogenes infection in the hematoma. She is on Ancef. She is doing well. 4. Hypertension, well controlled. 5. Status post ytbkp-lhg-rouv amputation. 6. Protein-calorie malnutrition. Prealbumin is less than 3. The patient is on supplements. 7. Lactic acidosis from sepsis, which has resolved. REVIEW OF HER ORDERS: I do not see any change. She is on Dilaudid 0.5 mg IV every 3 hours p.r.n., Eliquis 5 mg b.i.d., aspirin 81 mg a day, Plavix 75 mg a day, Neurontin 100 mg p.o. t.i.d., hydrocodone 10 mg every 6 hours p.r.n., cefazolin 2 grams IV every 8 hours, Crestor 5 mg a day. cc: Giovanny Villarreal MD
[2019-06-25] MEDS: DILAUDID IV PRN ×3 (00:09→17:44)
[2019-06-25] MEDS: KEFZOL 2 GM/D5W 2 GM/50 ML IVPB IV SCH ×3 (06:20→23:05)
[2019-06-25] MEDS: NORCO-10 PO PRN ×3 (06:20→21:33)
[2019-06-25 06:50] LABS: AGAP 10; ALB/GLOB RATIO 0.9; ALBUMIN 2.5 g/dL (3.5-5.0); ALKALINE PHOSPHATASE 138 U/L (32-104); BUN 9 mg/dL (8-22); CALCIUM 8.4 mg/dL (8.8-10.2); CHLORIDE 97 mmol/L (98-107); COSMO 262; CREATININE 0.4 mg/dL (0.5-0.9); ESTIMATED GFR > 60; GLUCOSE 105 mg/dL (70-104); GOT 29 U/L (10-30); GPT 10 U/L (10-36); POTASSIUM 4.9 mmol/L (3.5-5.1); SODIUM 131 mmol/L (136-145); TCO2 24 mmol/L (25-35); TOTAL BILIRUBIN 0.32 mg/dL (0.20-1.00); TOTAL PROTEIN 5.4 g/dL (6.3-8.3)
[2019-06-25] MEDS: NEUTRA-PHOS PO SCH ×4 (08:10→20:31)
[2019-06-25] MEDS: NEURONTIN PO SCH ×3 (08:10→20:30)
[2019-06-25] MEDS: ELIQUIS PO SCH ×2 (08:10→20:30)
[2019-06-25] MEDS: CRESTOR PO SCH (08:10)
[2019-06-25] MEDS: ASPIRIN PO SCH (08:10)
[2019-06-25] MEDS: PLAVIX PO SCH (08:10)
--- NOTE | 2019-06-25 18:17 | PROGRESS NOTE ---
DATE: 06/25/2019 SUBJECTIVE: Ms. Leahy is feeling better. Her leg has less swelling. Still when she gets up, she has some drainage from the incision on the left leg, and I told her that she will probably will have some drainage for a while. She remains afebrile. OBJECTIVE: Temperature 97.9, pulse 96, respirations 20, blood pressure 111/58.HEENT: Pupils are equal and round. Lungs: Clear in all lung agarwal. Cardiovascular: Regular rhythm and rate without murmur or S3. Abdomen: Soft. Skin: Warm and dry. Left leg with diminished swelling. No redness. Incision looks good. Urine output: Yesterday was 2500 mL. ASSESSMENT AND PLAN: 1. Occlusion of left femoral popliteal in situ bypass with extensive compression from hematoma, doing better. Hematoma was evacuated. Still some drainage. 2. Severe bilateral peripheral vascular disease, on statin, Plavix and Eliquis. 3. Sepsis on presentation secondary to Streptococcus pyogenes infection in the hematoma. She is getting Ancef. 4. Hypertension. 5. Status post above the knee amputation. 6. Protein calorie malnutrition. Pre-albumin is less than 3, and so we are encouraging nutrition, p.o. intake and supplemental nutrition. 7. Lactic acidosis from sepsis on presentation. Continue present orders. White count has come down. Hopefully, she can go home soon. She wants to go home with home health. cc: Giovanny Villarreal MD
--- NOTE | 2019-06-25 20:18 | PROGRESS NOTE ---
DATE: 06/25/2019 Ms. Nelda Leahy continues to have some drainage from her left leg wound especially when she gets up. She is on Eliquis and aspirin to maintain a femoral distal arterial bypass graft. Her left foot is warm, and she has got a good Doppler pulse. She is receiving IV antibiotics to prevent wound infection left leg. She remains weak when trying to use her walker because she has a right uidvn-xpc-smew amputation, and her left leg is weak. She is working with physical therapy. Her heart rate is 96, blood pressure 111/58. O2 saturation 94%. She is afebrile. She is receiving dressing changes, IV antibiotics and physical therapy. Her electrolytes are within normal limits. cc: Chica Major MD
[2019-06-26] MEDS: KEFZOL 2 GM/D5W 2 GM/50 ML IVPB IV SCH ×2 (06:31→15:07)
[2019-06-26] MEDS: NORCO-10 PO PRN ×2 (06:58→23:26)
[2019-06-26 07:08] LABS: AGAP 8; ALB/GLOB RATIO 0.8; ALBUMIN 2.5 g/dL (3.5-5.0); ALKALINE PHOSPHATASE 127 U/L (32-104); BUN 11 mg/dL (8-22); CALCIUM 8.3 mg/dL (8.8-10.2); CHLORIDE 99 mmol/L (98-107); COSMO 266; CREATININE 0.4 mg/dL (0.5-0.9); ESTIMATED GFR > 60; GLUCOSE 102 mg/dL (70-104); GOT 20 U/L (10-30); GPT 7 U/L (10-36); POTASSIUM 4.1 mmol/L (3.5-5.1); SODIUM 133 mmol/L (136-145); TCO2 26 mmol/L (25-35); TOTAL BILIRUBIN 0.22 mg/dL (0.20-1.00); TOTAL PROTEIN 5.8 g/dL (6.3-8.3)
[2019-06-26] MEDS: NEURONTIN PO SCH ×3 (08:21→20:25)
[2019-06-26] MEDS: ASPIRIN PO SCH (08:21)
[2019-06-26] MEDS: CRESTOR PO SCH (08:21)
[2019-06-26] MEDS: ELIQUIS PO SCH ×2 (08:22→20:25)
[2019-06-26] MEDS: PLAVIX PO SCH (08:22)
[2019-06-26] MEDS: NEUTRA-PHOS PO SCH ×4 (08:22→20:24)
--- NOTE | 2019-06-26 13:33 | PROGRESS NOTE ---
DATE: 06/26/2019 SUBJECTIVE: Ms. Leahy is doing well, feeling better, eating good, getting up. There is less drainage, less swelling in her left leg. I think she can probably move to the floor. OBJECTIVE: Vital signs: Temperature is 97.8 degrees, pulse 95, respirations 20, blood pressure 114/59. HEENT: Pupils are equal and round. Lungs: Clear in all lung agarwal. Cardiovascular: Regular rhythm and rate without murmur or S3. Abdomen: Soft. Skin: Warm and dry. ASSESSMENT AND PLAN: 1. Continues to have some drainage from the left leg wound, especially when she gets up. She is on Eliquis, aspirin to maintain femoral distal arterial bypass graft. The left foot has good capillary refill, good pulses, and is making good progress. Hopefully can go home or maybe go to rehab on Friday or Friday. 2. Severe bilateral peripheral vascular disease. She is on statin, Plavix and Eliquis. 3. She had sepsis on presentation from Streptococcus pyogenes infection, hematoma. 4. Hypertension. 5. Status post above the knee amputation on the right. 6. Protein calorie malnutrition. She is eating much better. REVIEW OF LAB: I do not see any change. Hematocrit is 27, hemoglobin 8.9. Electrolytes look good. cc: Giovanny Villarreal MD
--- NOTE | 2019-06-26 14:54 | GENERAL SURGERY PROGRESS NOTE ---
DATE: 06/26/2019 SUBJECTIVE: The patient is doing well. She denies any acute events or complaints overnight. She says her leg feels better. OBJECTIVE: She is afebrile. Vital signs are stable.General: She is awake, alert, oriented x3. No acute distress. Extremities: Her left leg was examined. The incision is intact. There is mild serosanguineous seepage. The foot is warm and appears to be perfused. LABORATORY: Electrolytes reviewed and unremarkable. ASSESSMENT AND PLAN: A 68-year-old female status post declot of left femoral distal arterial graft. Currently, she continues to need physical therapy, IV antibiotics, and wound care. Dr. Colby will reassess her on Friday. cc: Madhu Haney MD
[2019-06-26] MEDS: DILAUDID IV PRN ×2 (16:13→20:25)
[2019-06-27] MEDS: DILAUDID IV PRN ×3 (01:35→07:37)
[2019-06-27] MEDS: KEFZOL 2 GM/D5W 2 GM/50 ML IVPB IV SCH ×3 (02:38→13:27)
[2019-06-27 02:53] LABS: HEMATOCRIT 22.7 % (37.0-47.0); HEMOGLOBIN 6.7 g/dL (12.0-16.0)
[2019-06-27] MEDS ORDERED: NS 500 ML IV ONE (03:14)
[2019-06-27] MEDS: NORCO-10 PO PRN ×3 (05:32→18:12)
[2019-06-27] MEDS: NEURONTIN PO SCH ×2 (10:00→18:09)
--- NOTE | 2019-06-27 10:02 | GENERAL SURGERY PROGRESS NOTE ---
DATE: 06/27/2019 SUBJECTIVE: The patient complains of left leg pain and bleeding. She was moved from her room on the 2nd floor up to the 4th floor and subsequently noticed quite a bit of bleeding through the bandage and increased pain in the leg. A hemoglobin and hematocrit were obtained overnight which resulted 6.7 and 22.7 respectively, and a unit of blood was ordered by me. OBJECTIVE: Current vital signs: Temperature 97.2 degrees, pulse 111, respirations 20, blood pressure 150/71, O2 saturation 100%. General: She is awake and alert, no acute distress. Extremities: The left leg bandage appeared saturated with blood. I removed it. There are 1 or 2 areas in the incision where there is some bright red bloody oozing, likely from a skin vessel. The rest of the incision is intact with some ecchymosis and moderate edema. I applied a moderate pressure dressing. Of note, she does have dopplerable pulses in her feet and her foot is mildly cool but equal to her leg and thigh. ASSESSMENT AND PLAN: A 68-year-old female status post revascularization of the left leg graft with postoperative bleeding and acute blood loss anemia overnight. I think this will stop with the dressing changes. She needs to continue her anticoagulant medicine. It is likely that the bleeding began with all of the movement in and out of beds and to a different floor. cc: Madhu Haney MD
[2019-06-27] MEDS: PLAVIX PO SCH (11:19)
[2019-06-27] MEDS: NEUTRA-PHOS PO SCH ×3 (11:19→18:09)
[2019-06-27] MEDS: ELIQUIS PO SCH (11:20)
[2019-06-27] MEDS: CRESTOR PO SCH (11:20)
[2019-06-27] MEDS: ASPIRIN PO SCH (11:20)
--- NOTE | 2019-06-27 14:00 | PROGRESS NOTE ---
DATE: 06/27/2019 Ms. Leahy had some bleeding from her left thigh and so they wrapped it. That kind of shook her up. Her blood pressures remained good. OBJECTIVE: Temperature 97.4 degrees, pulse 116, respirations 20, blood pressure 108/70. Pupils are equal and round. Lungs are clear in all lung agarwal. Cardiovascular Examination: Regular rhythm and rate without murmur or S3. Abdomen is soft. Skin is warm and dry. Hematocrit 22, hemoglobin 6.7. Electrolytes unremarkable. Sodium 133, potassium 4.1, chloride 99, bicarb 26, BUN 11, creatinine 0.4. ASSESSMENT AND PLAN: Status post revascularization of left leg graft and postoperative bleeding with a hematoma, acute blood loss anemia overnight. Needs to continue her anticoagulant. Likely, that the bleeding began with all the movement in the bed. She is on Eliquis 5 mg twice a day, aspirin 81 mg a day, Plavix 75 mg a day. We will give her 2 units of packed red blood cells. Her hemoglobin is 6. cc: Giovanny Villarreal MD
[2019-06-28] MEDS: KEFZOL 2 GM/D5W 2 GM/50 ML IVPB IV SCH ×4 (00:01→21:40)
[2019-06-28] MEDS: NEURONTIN PO SCH ×4 (00:02→21:39)
[2019-06-28] MEDS: ELIQUIS PO SCH ×2 (00:02→08:11)
[2019-06-28] MEDS: NEUTRA-PHOS PO SCH ×5 (00:02→21:39)
[2019-06-28] MEDS: NORCO-10 PO PRN ×3 (05:04→21:39)
[2019-06-28] MEDS: CRESTOR PO SCH (08:11)
[2019-06-28] MEDS: PLAVIX PO SCH (08:11)
[2019-06-28] MEDS: ASPIRIN PO SCH (08:11)
--- NOTE | 2019-06-28 09:10 | GENERAL SURGERY PROGRESS NOTE ---
DATE: 06/27/2019 SUBJECTIVE: Ms. Leahy is now 11 days after thrombectomy of her graft and drainage of her hematoma. Her course since operation is been primarily one of the wound issues and some superficial bleeding from the anticoagulation. OBJECTIVE: She continues to have patency to her graft. She does have some ischemic change to the skin in her distal thigh posteriorly. So her graft is open. She has healing her distal wounds. PLAN: We will stop her Eliquis since she has been on it now for 11 days center graft seems to be stabilized. We will leave her on aspirin and Plavix. She can certainly get up. She can start mobilizing. We will recheck her labs tomorrow including her white blood cell count and hemoglobin. cc: Topher Colby MD
--- NOTE | 2019-06-28 17:51 | PROGRESS NOTE ---
DATE: 06/28/2019 SUBJECTIVE: Ms. Leahy is feeling better than yesterday. She got a transfusion of blood yesterday, and she of course 2 nights ago she had a little more bleeding and oozing from the wound. Incision looks good. Dr. Colby is pleased with it. She can be discharged when she is ready. OBJECTIVE: Temperature 97.8 degrees, pulse 110, respirations 18, and blood pressure 111/59. Pupils are equal and round. Lungs are clear in all lung agarwal. Cardiovascular exam regular rhythm and rate without murmur or S3. INPUT AND OUTPUT: Urine output was 1200 mL. ASSESSMENT AND PLAN: 1. Status post revascularization of the left leg graft, postoperative bleeding hematoma. Blood loss anemia. Continue on her anticoagulant, although we may stop the Eliquis. Keep her on aspirin and Plavix. Aspirin 81 mg a day, Plavix 75 mg a day. She is doing better. Her follow-up hemoglobin and hematocrit will check again tomorrow. Yesterday, hemoglobin was 6.7 so I gave her some blood. 2. Bilateral peripheral vascular disease status post amputation on the right side. She is on statin. We will stop the Eliquis. Continue Plavix and aspirin. 3. Presentation with Streptococcus, hematoma infection from hematoma. She has been on appropriate antibiotics. 4. Hypertension. 5. Status post vdzqc-zcz-lcuk amputation on the right. 6. Protein calorie malnutrition. Encourage p.o. intake which is improved dramatically so we will look to see if she can go home soon. I will check CBC and basic metabolic again in the morning. Review of her orders, I do not see any change. cc: MD SHAWN Blanc
[2019-06-28] MEDS: ZOFRAN IV PRN (18:03)
[2019-06-29] MEDS: NORCO-10 PO PRN ×4 (03:53→23:25)
[2019-06-29] MEDS: KEFZOL 2 GM/D5W 2 GM/50 ML IVPB IV SCH ×4 (04:09→21:07)
[2019-06-29 08:03] LABS: BASO# 0.02 X1000 (0.0-0.2); BASO% 0.1 % (0.0-0.8); EOS# 0.04 X1000 (0.0-0.7); EOS% 0.3 % (0.0-10.0); HEMATOCRIT 17.3 % (37.0-47.0); IMM GRAN# 0.24 X1000 (0.0-0.04); IMM GRAN% 1.8 % (0.0-0.5); LYMPH# 2.38 X1000 (1.2-3.4); LYMPH% 17.6 % (20.5-51.1); MCH 28.3 PG (27-31); MCHC 30.6 g/dL (33-37); MCV 92.5 FL (81-99); MONO# 1.38 X1000 (0.11-0.59); MONO% 10.2 % (1.7-9.3); MPV 9.1 FL (7.4-10.4); NEUT# 9.49 X1000 (1.4-6.5); PLT 904 X1000 (130-400); RBC 1.87 XMIL (4.2-5.4); RDW 14.5 % (11.5-14.5); WBC 13.55 X1000 (4.8-10.8)
[2019-06-29 08:19] LABS: AGAP 9; BUN 17 mg/dL (8-22); CALCIUM 8.1 mg/dL (8.8-10.2); CHLORIDE 98 mmol/L (98-107); COSMO 271; CREATININE 0.4 mg/dL (0.5-0.9); ESTIMATED GFR > 60; GLUCOSE 92 mg/dL (70-104); POTASSIUM 4.2 mmol/L (3.5-5.1); SODIUM 135 mmol/L (136-145); TCO2 28 mmol/L (25-35)
[2019-06-29] MEDS ORDERED: NS 500 ML IV SCH (09:00)
[2019-06-29] MEDS: PLAVIX PO SCH (09:15)
[2019-06-29] MEDS: NEURONTIN PO SCH ×4 (09:16→22:16)
[2019-06-29] MEDS: CRESTOR PO SCH (09:16)
[2019-06-29] MEDS: ASPIRIN PO SCH (09:16)
[2019-06-29] MEDS: NEUTRA-PHOS PO SCH ×5 (09:16→22:16)
--- NOTE | 2019-06-29 09:37 | PROGRESS NOTE ---
DATE: 06/29/2019 SUBJECTIVE: Ms. Leahy denied any more bleeding yesterday. She does feel a little bit better, but her hemoglobin is below 7 again. OBJECTIVE: Vital Signs: Temp 98.1, pulse 116, respirations 16, blood pressure 110/79. HEENT: Pupils are equal and round. Lungs: Clear in all lung agarwal. Cardiovascular: Regular rhythm and rate without murmur or S3. Urine output is 4100 mL. ASSESSMENT AND PLAN: 1. Status post revascularization of the left leg graft, postoperative bleeding, hematoma. She was on Eliquis, which we stopped. She is on Plavix and aspirin. Continue topical care. Her vasculature looks good, and she is complaining of a little tingling pain in her foot, which I suspect is secondary to revascularization. I think that is a good sign. 2. Bilateral peripheral vascular disease, status post amputation on the right leg. 3. Presented with Streptococcus infection and a hematoma in the left incision. 4. Hypertension. 5. Protein calorie malnutrition. Encourage oral intake, which is markedly improved. Will give her 2 units of blood today. Hopefully, we can get her home in the next couple of days. REVIEW OF ORDERS: I do not see any change. She is on cefazolin 2 grams IV every 8 hours (will continue that for now), Plavix 75 mg a day, aspirin 81 mg a day, Crestor 5 mg a day, getting hydrocodone 10 mg every 6 hours p.r.n. pain. cc: Giovanny Villarreal MD
[2019-06-29 09:44] LABS: LYMPHS 10 % (21-51); MONO 6 % (1-9); SEGS 82 % (42-75)
[2019-06-29] MEDS ORDERED: ROBINUL ONE (18:42)
[2019-06-29] MEDS ORDERED: XYLOCAINE-MPF 2% ONE (18:42)
[2019-06-29] MEDS ORDERED: DIPRIVAN 1% ONE (18:42)
[2019-06-29] MEDS ORDERED: KEFZOL ONE (18:44)
[2019-06-29] MEDS ORDERED: HEPARIN ONE (18:44)
[2019-06-29] MEDS ORDERED: SENSORCAINE-MPF 0.5%/EPI 1:200,000 ONE (18:45)
[2019-06-29] MEDS ORDERED: NS 1,000 ML ONE (18:45)
[2019-06-29] MEDS ORDERED: QUELICIN (DOSE) ONE (18:45)
[2019-06-29 18:48] LABS: HEMATOCRIT 29.8 % (37.0-47.0); HEMOGLOBIN 9.6 g/dL (12.0-16.0)
[2019-06-29] MEDS ORDERED: ZOFRAN ONE (19:22)
[2019-06-29 20:18] LABS: URINE SOURCE CATH
[2019-06-29 20:21] LABS: BILIRUBIN URINE NEGATIVE (NEGATIVE); BLOOD URINE NEGATIVE (NEGATIVE); COLOR YELLOW; GLUCOSE URINE NEGATIVE (NEGATIVE); KETONE URINE NEGATIVE (NEGATIVE); LEUKOCYTES URINE NEGATIVE (NEGATIVE); NITRITE URINE NEGATIVE (NEGATIVE); PROTEIN URINE TRACE mg/dL (NEGATIVE); TURBIDITY URINE CLEAR (CLEAR); UROBILINOGEN URINE 8 mg/dL (NORMAL)
[2019-06-29 20:32] LABS: UR EPITHELIAL CELLS <10 /HPF (<10); URINE BACTERIA NEGATIVE /HPF; URINE RBC <10 /HPF (<10)
[2019-06-29 20:37] LABS: URINE YEAST PRESENT
[2019-06-29 20:42] LABS: HEMATOCRIT 41.6 % (37.0-47.0)
[2019-06-29] MEDS ORDERED: KEFZOL 1 GM/D5W 2 GM/100 ML IVPB ONE (20:54)
--- NOTE | 2019-06-29 20:59 | GENERAL SURGERY PROGRESS NOTE ---
DATE: 06/29/2019 Ms Leahy's hemoglobin drifted down to 5, hematocrit 17, white count 13,500. She is receiving 2 units of blood. She has some recurrence of her hematoma in the thigh. The plan will be to evacuate the hematoma tomorrow in the operating room. I will go ahead and stop her Plavix as well. I have discussed this with her son. cc: Topher Colby MD
[2019-06-29 21:08] LABS: HEMOGLOBIN 5.3 g/dL (12.0-16.0)
[2019-06-29] MEDS ORDERED: DILAUDID ONE (21:35)
[2019-06-29] MEDS: DILAUDID IV PRN (23:48)
[2019-06-30] MEDS: DILAUDID IV PRN ×6 (02:29→19:55)
--- NOTE | 2019-06-30 04:15 | GENERAL SURGERY PROGRESS NOTE ---
DATE: 06/29/2019 This is a patient Dr. 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 She has been stable on the floor, however, developed acute onset of bleeding from her wound with expansion of her distal aspect of her incision along the medial thigh. She is hemodynamically stable. She was anemic earlier today and was transfused 2 units of blood, but we are crossmatching her now. I have also mobilized the operating room for control of hemorrhage. We discussed with the patient the significance of this and unsure of what this will require. Does appear to be fresh red blood bleeding between the sutures in her leg with an expanding hematoma. cc: Naina Cao MD
[2019-06-30 05:34] LABS: BASO# 0.04 X1000 (0.0-0.2); BASO% 0.2 % (0.0-0.8); EOS# 0.04 X1000 (0.0-0.7); EOS% 0.2 % (0.0-10.0); HEMATOCRIT 37.6 % (37.0-47.0); HEMOGLOBIN 12.9 g/dL (12.0-16.0); LYMPH# 2.05 X1000 (1.2-3.4); LYMPH% 11.7 % (20.5-51.1); MCH 30.1 PG (27-31); MCHC 34.3 g/dL (33-37); MCV 87.9 FL (81-99); MONO# 1.72 X1000 (0.11-0.59); MONO% 9.8 % (1.7-9.3); NEUT# 13.67 X1000 (1.4-6.5); NEUT% 78.1 % (42.2-75.2); PLT 534 X1000 (130-400); RBC 4.28 XMIL (4.2-5.4); RDW 14.5 % (11.5-14.5); WBC 17.52 X1000 (4.8-10.8)
[2019-06-30] MEDS: KEFZOL 2 GM/D5W 2 GM/50 ML IVPB IV SCH (05:54)
--- NOTE | 2019-06-30 06:38 | OPERATIVE NOTE ---
PROCEDURE DATE: 06/29/2019 PREOPERATIVE DIAGNOSIS: Hemorrhage and left lower extremity hematoma. POSTOPERATIVE DIAGNOSIS: Hemorrhage and left lower extremity hematoma secondary to bleeding from vein graft. PROCEDURE PERFORMED: 1. Evacuation of deep space hematoma left lower extremity. 2. Repair of the venotomy of the distal saphenous vein graft. ESTIMATED BLOOD LOSS: 350 mL. SPECIMENS: None. ANESTHESIA: General. INDICATIONS: This is a 68-year-old female who has a history of a fem-to above- knee popliteal in situ saphenous vein bypass graft. She had a recent thrombectomy and evacuation of hematoma, and ligation of venous branches by Dr. Colby greater than a week ago. She developed an expanding hematoma with arterial bleeding from her incision, and was taken emergently to the operating room. OPERATIVE FINDINGS: There was an in situ vein graft noted. The anastomosis distally was intact. There was bleeding noted at the site of a Prolene stitch on the anterior surface of the distal vein graft. The vein wall was quite thin and friable. There was flow in the graft and popliteal artery noted in the end of the case. OPERATIVE NOTE: Risks, benefits, and alternatives were discussed with the patient, and she consented to the procedure. She was seen preoperatively. Surgical site was marked. She was taken to the operating room emergently. Her leg was prepped circumferentially with Betadine. She was given pre incision antibiotics. After a time-out, we took out the coby starting proximally to the hematoma and extending distally. We evacuated a large amount of clot, and identified brisk arterial bleeding distally. We were able to identify the bleeding points. Using my fingers, I controlled the inflow via the vein graft, and identified the point of bleeding. At this point, a DeBakey clamp was used to occlude the vein graft. A 5-0 Prolene suture was used in a etykxo-wy-dmhwa fashion to control the hemorrhage. We placed some Gel-Foam over this, and observed for several minutes. It seems to be hemostatic. We evacuated the remainder of the hematoma and inspected it. We felt that we had not stenosed the vein, however, the bleeding again returned from this location. A second bvxjty-tb-obhgy 6-0 Prolene suture was used. We felt we had adequately controlled this. We observed her for several more minutes. I placed some alexa prothrombotic material at this location. I irrigated the wound. All the clot was evacuated. We reapproximated the muscle over the vein graft distally, and then closed the skin back. There was a necrosis that had been present prior to the surgery in the posterior skin flap, but given the emergent nature, we elected to just close this over this, and not further debridement, which would leave our graft exposed. Gauze, Kerlix, and a loose Dileep wrap. Dressing was applied. Her foot was warm at the end the case. We did listen with Doppler, and there was flow noted in the distal popliteal artery at the end of the case as well as the vein graft. I spoke with the family. She was woken, and transferred to the recovery and sent her to the step-down unit. She was transfused 3 units of blood during surgery. cc: Naina Cao MD MTDD
[2019-06-30] MEDS: NEURONTIN PO SCH ×3 (07:36→19:59)
[2019-06-30] MEDS: CRESTOR PO SCH (09:16)
[2019-06-30] MEDS: ASPIRIN PO SCH (09:19)
[2019-06-30] MEDS: NEUTRA-PHOS PO SCH ×4 (09:20→19:59)
[2019-06-30] MEDS ORDERED: VANCOMYCIN IV PER PHARMACY MISC SCH (10:15)
[2019-06-30] MEDS: ZOSYN 3.375 GM in NS 50 ML IV SCH ×2 (11:47→15:20)
[2019-06-30] MEDS ORDERED: VANCOMYCIN 1,350 MG in NS 250 ML IV ONE (12:00)
--- NOTE | 2019-06-30 16:17 | PROGRESS NOTE ---
DATE: 06/30/2019 SUBJECTIVE: Ms. Leahy went back for surgery. She started bleeding and having a lot of pain in her leg. Dr. Olegario Cao took her back for surgery in and repaired the bleed. She feels much better this morning. OBJECTIVE: She remains afebrile, temperature 98.2 degrees, pulse 100, respirations 12, blood pressure 123/79.HEENT: Pupils are equal and round. Lungs: Clear in all lung agarwal. Cardiovascular: Regular rhythm and rate without murmur or S3. Abdomen: Soft. Skin: Warm and dry. ASSESSMENT AND PLAN: 1. Hemorrhage in left lower extremity. Hematoma secondary to bleeding from vein graft, evacuation of deep space hematoma, left lower extremity repair venotomy of the distal saphenous venous graft. She is comfortable and is awake and alert and in much less pain. 2. She is status post revascularization of left leg and she was on Eliquis and Plavix and aspirin. We have stopped the Eliquis and had ongoing bleeding and some drainage. She seems to have good peripheral flow to the foot. The foot is feels a little cool but I can palpate a faint pulse, dorsalis pedis. 3. She presented with a Staphylococcus infection of her hematoma and so she has been on antibiotics. 4. Hypertension. 5. Protein calorie malnutrition. Encouraging p.o. intake which is improved dramatically. 6. Presently, she is getting Dilaudid 0.5 mg IV q.3 hours p.r.n., aspirin 81 mg a day, Neurontin 100 mg p.o. t.i.d., Crestor 5 mg a day, vancomycin 1100 mg IV q.36 hours, Zosyn 3.375 g IV q.6 7. Her lab today: Hematocrit 37 hemoglobin 12.9. I think I gave her 2 units of blood yesterday and actually that is as good as her hematocrit has been since her hospitalization. She got a total of 7 more units of blood since the . cc: Giovanny Villarreal MD
--- NOTE | 2019-06-30 16:38 | GENERAL SURGERY PROGRESS NOTE ---
DATE: 06/30/2019 SUBJECTIVE: I am aware of the events from last evening and Dr. Cao's intervention, and it is appreciated. OBJECTIVE: She is afebrile today. Heart rate is 102. Blood pressure 140/89. Her leg is wrapped. Her left foot is cool. There is no palpable pulse. I do not hear any Doppler flow of her left foot. Her foot is viable. PLAN: The plan will be to expand her antibiotic coverage. Secondly, I will have to use a cadaver vein in order to revascularize her left leg as her own vein has not held up and has broken down and bled twice and is simply inadequate for continued usage. It is currently clotted. So, we will plan for July 02. I have discussed this with her and her . cc: Topher Colby MD
[2019-07-01] MEDS: ZOSYN 3.375 GM in NS 50 ML IV SCH ×5 (00:06→20:14)
[2019-07-01] MEDS: DILAUDID IV PRN ×5 (05:17→22:18)
[2019-07-01] MEDS: NEUTRA-PHOS PO SCH ×4 (08:00→20:15)
[2019-07-01] MEDS: ASPIRIN PO SCH (08:00)
[2019-07-01] MEDS: CRESTOR PO SCH (08:00)
[2019-07-01] MEDS: NEURONTIN PO SCH ×3 (08:00→20:15)
--- NOTE | 2019-07-01 10:38 | PROGRESS NOTE ---
DATE: 07/01/2019 SUBJECTIVE: Ms. Leahy feels better, less pain. Her left foot is cool, and it sounds like no pulse by Doppler, so plan is to go back to get a cadaver venous graft in the left leg tomorrow. OBJECTIVE: Vital Signs: Temp is 97.6 degrees, she remains afebrile, pulse 110, respirations 17, blood pressure 125/91. HEENT: Pupils are equal and round. Lungs: Clear in all lung agarwal. Cardiovascular: Regular rhythm and rate without murmur or S3. Urine output is 2800 mL. ASSESSMENT AND PLAN: 1. Hemorrhage in left lower extremity hematoma after vein graft evacuation for deep space hematoma, and she was taken back for left lower extremity repair with venotomy of the distal saphenous vein graft. I think the plan is to take her back to surgery tomorrow and try to do a cadaver graft. 2. Status post revascularization of the left leg. She was on Eliquis, Plavix, and aspirin. She is just on Plavix and aspirin at this time. 3. Staphylococcus infection of her hematoma. Been on antibiotics. 4. Hypertension. 5. Protein calorie malnutrition. Encouraging oral intake. REVIEW OF ORDERS: She is on vancomycin 1100 mg IV every 36 hours, Zosyn 3.375 grams every 6 hours, gabapentin 100 mg p.o. t.i.d., aspirin 81 mg a day. LABORATORY DATA: This morning, electrolytes and CBC I think are pending, so we will check those again today. cc: Giovanny Villarreal MD
[2019-07-01 11:01] LABS: BASO# 0.15 X1000 (0.0-0.2); BASO% 1.2 % (0.0-0.8); EOS# 0.15 X1000 (0.0-0.7); EOS% 1.2 % (0.0-10.0); HEMATOCRIT 39.9 % (37.0-47.0); IMM GRAN# 0.45 X1000 (0.0-0.04); IMM GRAN% 3.7 % (0.0-0.5); LYMPH# 2.07 X1000 (1.2-3.4); LYMPH% 17.1 % (20.5-51.1); MCH 29.7 PG (27-31); MCHC 32.6 g/dL (33-37); MCV 91.3 FL (81-99); MONO# 1.21 X1000 (0.11-0.59); MPV 8.6 FL (7.4-10.4); NEUT# 8.07 X1000 (1.4-6.5); NEUT% 66.8 % (42.2-75.2); PLT 654 X1000 (130-400); RBC 4.37 XMIL (4.2-5.4); RDW 14.8 % (11.5-14.5)
[2019-07-01 11:22] LABS: AGAP 7; BUN 11 mg/dL (8-22); CHLORIDE 102 mmol/L (98-107); COSMO 272; CREATININE 0.5 mg/dL (0.5-0.9); ESTIMATED GFR > 60; GLUCOSE 112 mg/dL (70-104); SODIUM 136 mmol/L (136-145); TCO2 27 mmol/L (25-35)
[2019-07-01 11:33] LABS: EOS 2 % (1-10)
[2019-07-01 11:35] LABS: BANDS 1 % (0-1); LYMPHS 16 % (21-51); MONO 10 % (1-9); SEGS 68 % (42-75)
[2019-07-01 11:46] LABS: HYPOCHROM 1+
[2019-07-01] MEDS: NORCO-10 PO PRN ×3 (12:20→21:08)
--- NOTE | 2019-07-01 15:26 | PROVIDER DOCUMENTATION ---
This chart was entered by Cherrie Major Scribe, acting as scribe for Ld Monet MD. HPI-Musculoskeletal Pain/Inj - GENERAL Chief Complaint: Post Op Complaint Stated Complaint: POST OP COMPLAINT Time Seen by Provider: 06/16/19 13:39 Source: patient - HX OF PRESENT ILLNESS-MUSKULOSKELTAL Nature of Presenting Problem: 68 yof presents to the ed with c/o LLE pain acute onset last night. pt recently had sx done by dr horton and has hx of PVD. pt sts has been doing great till last night with onset of pain. Quality of Pain: reports: aching Severity in ED: moderate Onset/Duration: last night Timing: still present, constant, getting worse Modifying Factors: improves with: nothing. worse with: movement, palpation Any recent injury?: No Locality of Occurance: Home Similar Symptoms Previously?: Yes Recently seen or treated by another doctor?: Yes (saw dr horton last week for sx) Review of Systems - Adult - REVIEW OF SYSTEMS - ADULT Constitutional: denies: chills, fever Eyes: reports: no symptoms reported Ears, Nose, Mouth & Throat: reports: no symptoms reported Cardiovascular: denies: chest pain, palpitations Respiratory: denies: shortness of breath, wheezing Gastrointestinal: denies: diarrhea, nausea, vomiting Genitourinary: reports: no symptoms reported Musculoskeletal: reports: see HPI, other (LLE). denies: back pain, neck pain Integumentary: reports: no symptoms reported Neurological: reports: no symptoms reported Psychiatric: reports: no symptoms reported Endocrine: reports: no symptoms reported Hematologic/Lymphatic: reports: see HPI, blood clots Allergic/Immunologic: reports: no symptoms reported All Other Systems: Reviewed and Negative Past History - Adult - PAST MEDICAL HISTORY-ADULT Review of Records: reports: Old Records Reviewed, Nursing Assessment Review, Medications Reviewed, Social history reviewed & non-contributory. Major Childhood Illnesses: reports: denies history Cardiovascular: reports: blood clots, HTN, PAD Respiratory: reports: asthma Gastrointestinal: reports: denies history Obstetrical/Gynecological: reports: denies history Genitourinary: reports: denies history Musculoskeletal: reports: denies history Neurological: reports: denies history Psychiatric: reports: denies history Endocrine/Immune: reports: denies history Other Conditions: reports: denies history - PRIOR SURGERIES/PROCEDURES Surgical/Procedure History: reports: recent surgery, orthopedic (extremity), other (RAKA) - IMMUNIZATION STATUS Childhood Immunizations: See Nurse Assessment Flu Vaccine: See Nurse Assessment - FAMILY HISTORY Family History: reviewed, not pertinent - SOCIAL HISTORY Smoking: denies Substance Use: denies Living Situation: family Physical Exam-Injury Related - Physical Exam-Injury Related Initial Vital Signs Reviewed: Yes General Appearance: appears well, alert, mild distress Eyes: PERRL/EOMI, pink conjunctivae Head, Ears, Nose, Mouth & Throat: moist mucous membranes Neck: non-tender, full range of motion, supple, normal inspection Respiratory: chest non-tender, lungs clear, normal breath sounds Cardiovascular: regular rate, rhythm. negative: normal peripheral pulses (LLE no pulse felt) Chest/Breast: deferred Abdominal Exam: normal bowel sounds, non tender, soft Female Genitalia/Pelvic Exam: deferred Rectal Exam: deferred Hemoccult Exam: deferred Lymphatic: no adenopathy Back Exam: no CVA tenderness, no vertebral tenderness Extremity: normal range of motion, pulse deficit (LLE), other (RAKA) Integumentary: normal color Neurologic: grossly normal Psych/Mental Status: normal mood/affect, normal thought content, normal thought process, oriented x 3 - Glascow Coma Score Best Eye Response ([place]): (4) open spontaneously Best Verbal Response ([place]): (5) oriented Best Motor Response ([place]): (6) obeys commands [place] Total: 15 Progress - PLAN OF CARE/RESULTS Progress/Plan/Lab Results: Orders Category Date Time Status Admit - [facility] Routine AdmDCTranf 06/16/19 15:10 Active Currently Rec Anticoagulation [QM] ROUTINE Care 06/16/19 15:10 Completed Intake and Output-Strict Q 8-HR ASSESS Care 06/16/19 15:10 Active Nursing [Misc. NRSG Communication Order] DIRECTED Care 06/16/19 15:16 Active Nursing- MD Consult Request ROUTINE Care 06/16/19 15:13 Completed Update & Confirm Home Medicati ROUTINE Care 06/16/19 15:15 Completed Z-Document. for Tele Applied ORDERED Care 06/16/19 15:12 Completed Physician/Provider Consults Routine Cons 06/16/19 15:12 Ordered NPO Diet 06/17/19 00:01 Completed Regular Diet Diet 06/16/19 15:11 Completed BASIC METABOLIC PANEL [CHEM] Routine Lab 06/17/19 05:45 Completed CBC WITH DIFF [HEME] Routine Lab 06/17/19 05:45 Completed CBC WITH DIFF [HEME] Stat Lab 06/16/19 14:39 Completed COMPREHENSIVE METABOLIC PANEL [CHEM] Stat Lab 06/16/19 14:39 Completed PROTIME WITH INR [COAG] Stat Lab 06/16/19 14:39 Completed PTT [COAG] Stat Lab 06/16/19 14:39 Completed Heparin Med 06/16/19 14:19 Discontinued 5,000 unit IV NOW ONE Heparin 25,000 Units/D5w Med 06/16/19 14:30 Discontinued 25,000 unit in 250 ml IV 12 unit/kg/hr Hydromorphone [Dilaudid] Med 06/16/19 14:53 Discontinued 0.5 mg IV Q3H PRN PRN Hydroxyzine Liquid Med 06/16/19 14:33 Discontinued 10 mg PO NOW ONE Ondansetron [Zofran] Med 06/16/19 15:10 Active 4 mg IV Q4H PRN PRN Telemetry [OM.EQ] Routine Oth 06/16/19 15:10 Active Transfer/Admit Order [TRANSFER] Routine Transfer 06/16/19 15:17 Completed Result Diagrams: 07/01/19 10:33 07/01/19 10:33 - CONSULTS/PCP/HOSPITALIST Notification #1 *Consult/PCP/Hospitalist*: dr blackwood sjose Time Discussed: 14:10 (wants pt admitted t hospitalist and start on hep drip) Reason/Comments: in ed seeing pt #2 Consult: hospitalist Time Discussed: 14:31 Reason/Comments: spoke with esteban Consult Disposition: Admit Departure - Departure Date of Disposition Decision: 06/16/19 Time of Disposition Decision: 13:55 DIAGNOSIS: Ischemic foot Disposition: ADMITTED INPATIENT 09 Certified Medical Emergency: Emergent Condition: Stable - Critical Care Note This patient required my direct & personal management of CC.: No Attestation - Physician/ JACQUELINE Attestation Patient care was provided by Advanced Practice Provider:: No The physician spent face to face time with patient:: Yes Advanced Practice Provider documentation review:: Supervising physician onsite and consulted in the evaluation and care of this patient. The physician did have a face to face encounter with the patient. This chart was documented by the indicated scribe, (Cherrie Major Scribe) and accurately reflects the services I performed and decisions made by me, Ld Monet MD, as attested by the provider's signature.
--- NOTE | 2019-07-01 16:01 | GENERAL SURGERY PROGRESS NOTE ---
DATE: 07/01/2019 Ms. Leahy is doing generally well today. She is afebrile. Heart rate 106, blood pressure 129/80. Her left foot is numb. Her white count today is 12,100, hemoglobin 13, hematocrit 39. Her chemistry is fine. PLAN: Revision of her bypass by using a cadaver vein tomorrow. We will have to stay on the outside of her leg to avoid the wound medially. I have discussed this with her. She understands. We have broader antibiotic coverage as compared to what she was having to be certain that all offending bacteria are covered. cc: Tophre Colby MD
[2019-07-02] MEDS: VANCOMYCIN 1,100 MG in NS 250 ML IV SCH (00:56)
[2019-07-02] MEDS: ZOSYN 3.375 GM in NS 50 ML IV SCH ×4 (02:07→21:32)
[2019-07-02] MEDS: DILAUDID IV PRN ×5 (02:33→21:31)
[2019-07-02] MEDS: NORCO-10 PO PRN ×3 (04:38→22:59)
[2019-07-02 06:55] LABS: BASO# 0.14 X1000 (0.0-0.2); BASO% 1.2 % (0.0-0.8); EOS% 2.6 % (0.0-10.0); HEMATOCRIT 39.3 % (37.0-47.0); HEMOGLOBIN 12.4 g/dL (12.0-16.0); IMM GRAN# 0.64 X1000 (0.0-0.04); IMM GRAN% 5.5 % (0.0-0.5); LYMPH# 2.19 X1000 (1.2-3.4); LYMPH% 18.9 % (20.5-51.1); MCH 29.5 PG (27-31); MCHC 31.6 g/dL (33-37); MCV 93.6 FL (81-99); MONO# 1.22 X1000 (0.11-0.59); MONO% 10.6 % (1.7-9.3); MPV 8.7 FL (7.4-10.4); NEUT# 7.07 X1000 (1.4-6.5); NEUT% 61.2 % (42.2-75.2); PLT 634 X1000 (130-400); RDW 14.9 % (11.5-14.5); WBC 11.56 X1000 (4.8-10.8)
[2019-07-02 07:29] LABS: AGAP 9; BUN 9 mg/dL (8-22); CALCIUM 8.1 mg/dL (8.8-10.2); CHLORIDE 103 mmol/L (98-107); COSMO 274; CREATININE 0.4 mg/dL (0.5-0.9); ESTIMATED GFR > 60; GLUCOSE 91 mg/dL (70-104); POTASSIUM 3.7 mmol/L (3.5-5.1); SODIUM 138 mmol/L (136-145); TCO2 26 mmol/L (25-35)
[2019-07-02 07:52] LABS: LYMPHS 12 % (21-51); MONO 10 % (1-9); SEGS 76 % (42-75)
[2019-07-02] MEDS ORDERED: FENTANYL ONE (09:36)
[2019-07-02] MEDS ORDERED: DIPRIVAN 1% ONE (09:36)
[2019-07-02] MEDS: ASPIRIN PO SCH (09:56)
[2019-07-02] MEDS: NEUTRA-PHOS PO SCH ×4 (09:56→21:32)
[2019-07-02] MEDS: NEURONTIN PO SCH ×3 (09:56→21:32)
[2019-07-02] MEDS: CRESTOR PO SCH (09:56)
[2019-07-02] MEDS ORDERED: ZOFRAN ONE (10:22)
[2019-07-02] MEDS ORDERED: KEFZOL ONE (10:35)
[2019-07-02] MEDS ORDERED: NS 500 ML ONE (10:36)
[2019-07-02] MEDS ORDERED: HEPARIN ONE (10:36)
[2019-07-02] MEDS ORDERED: NS 1,000 ML ONE (10:37)
[2019-07-02] MEDS ORDERED: SENSORCAINE-MPF 0.5%/EPI 1:200,000 ONE (10:44)
[2019-07-02] MEDS ORDERED: HEPARIN (DOSE) ONE (11:40)
[2019-07-02] MEDS ORDERED: QUELICIN (DOSE) ONE (11:41)
[2019-07-02] MEDS ORDERED: ROBINUL ONE (12:18)
[2019-07-02] MEDS ORDERED: NEOSTIGMINE ONE (12:18)
[2019-07-02] MEDS: DILAUDID ONE ×3 (13:05→13:15)
--- NOTE | 2019-07-02 18:01 | PROGRESS NOTE ---
DATE: 07/02/2019 INTERVAL HISTORY: The patient is status post revision of femoral-popliteal bypass this morning. Patient doing well postop. Complaining of some pain but just had some pain medicine. No other new complaints. No other acute events. REVIEW OF SYSTEMS: Twelve-point review of systems negative except as per interval history. LABS: WBC 11.5, hemoglobin 12.4, hematocrit 39.3, platelets 34. Sodium 138, potassium 3.7, BUN 9, creatinine 0.4, glucose 91, magnesium 2.0. VITALS: T-max 98.0, pulse 99, respirations 18, blood pressure 121/86, O2 saturation 100% on room air. PHYSICAL EXAMINATION: General: No acute distress. Vitals: As above. HEENT: Normocephalic, atraumatic. Moist mucous membranes. Cardiovascular: Regular rate and rhythm. No murmurs noted. Pulmonary: Clear to auscultation bilaterally. No wheezing, rales, or rhonchi. Abdomen: Soft, nontender, nondistended. Bowel sounds are actually quite good. Extremities: Peripheral pulses intact. Left leg heavily bandaged from hip down to below the knee. Neurologic: Cranial nerves grossly intact. No focal deficits identified. Psychiatric: Normal mood and affect. Awake, alert, oriented x3. ASSESSMENT AND PLAN: 1. Left leg graft occlusion secondary to infected hematoma. Patient had initial clean-out of hematoma and went back for revision of her femoral-popliteal bypass this morning. Blood counts have remained stable since initial transfusion. There is no lab evidence for continued bleeding. She is on antibiotics with vancomycin and Zosyn, as it was felt that this hematoma and subsequently the wound was infected. Culture growing out Streptococcus pyogenes which is pansensitive. We will continue antibiotics and await further surgery recommendations. 2. Peripheral arterial disease, on aspirin and Plavix, which we will plan on continuing and less asked to do otherwise by Surgery. 3. Hyperlipidemia. Continue statin. 4. Hypertension. Good control off home antihypertensives. We will continue holding for now but will likely restart Norvasc if her blood pressure starts becoming consistently elevated. DISPOSITION: Extensive wound and surgical revision of femoral-popliteal bypass. On IV antibiotics. The plan is to eventually go to [facility] and rehab, but uncertain about the time line on that. We will see what Surgery says. [facility]
--- NOTE | 2019-07-02 18:53 | OPERATIVE NOTE ---
PROCEDURE DATE: 07/02/2019 PROCEDURE PERFORMED: Left femoral to anterior tibial cadaveric vein bypass. SURGEON: Topher Colby MD CUSTOMS COMPLIANCE SPECIALIST: Omar Parkinson RN PREOPERATIVE DIAGNOSES: 1. Rest pain, left foot. 2. Thrombosis of the left femoropopliteal in situ vein bypass. POSTOPERATIVE DIAGNOSES: 1. Rest pain, left foot. 2. Thrombosis of the left femoral-popliteal in situ vein bypass. INDICATION: This is done as a limb salvage procedure. She had a previously placed left femoral- popliteal in situ vein bypass that is now thrombosed after 2 bleeding episodes from the vein graft. The patient had also developed skin necrosis on the medial aspect of the thigh distally, so it became evident that we would have to go lateral to stay in a virgin plane. We chose the anterior tibial as our target distal anastomosis. DESCRIPTION OF PROCEDURE: Satisfactory general endotracheal anesthesia was achieved. The coby were taken out of the previous groin incision. The left groin and left leg were prepped and draped in sterile fashion with the foot excluded. We made a longitudinal incision in the anterolateral aspect of the calf proximally. We dissected down between the anterior tibial muscle and the lateral muscles, dissected down and identified the anterior tibial artery. We surrounded it with Vesseloops proximally and distally, and small branches were surrounded with 3-0 silks. We then opened the proximal incision over the common femoral, and it was fairly incorporated. We dissected down to identify the common femoral just as it came under the inguinal ligament. We surrounded it with a large umbilical tape proximally and a large Vesseloop distally. We did not dissect out the profunda. The vein graft was identified and thrombosed. We then had obtained the cadaveric vein. It was thawed and then flushed with saline according to recommendations of the used building materials yard worker. The vein measured about 70 cm. It appeared we would have to use about 52 to 55 cm of the vein. We then tunneled it with a Dossick tunneler using a counterincision in the distal lateral thigh. I failed to mention we marked the vein prior to tunneling it so that we would not twist it. After we tunneled it, we then irrigated it again with saline to be certain that it was fully extended and not kinked and not twisted. Heparin 5000 units were given. After it circulated for 4 minutes, we then clamped off the common femoral with the inguinal ligament and used a Vesseloop distally, and then incised the artery anteriorly. We extended it with the Balderas scissors, used a 6 punch. We then spatulated the vein to match the 6 mm punched hole in the anterior common femoral. We constructed this anastomosis under 2.5 loupe magnification using a 5-0 Prolene stitch. Upon completing that we allowed flow, and there was pulsatile flow in the vein graft. We then turned our attention again to the anterior tibial artery. Under 2.5 loupe magnification, we incised the artery. There was some flow in the artery. We occluded flow easily with the Vesseloops. We passed a 1.5 and 2 dilator in the artery, and I did not try to push a 2.5. We had adequate backbleeding from the anterior tibial. We then cut the vein graft the appropriate length, spatulated it and then constructed this anastomosis under 2.5 loupe magnification using a 6-0 Prolene stitch. Just prior to finishing it, we allowed inupiat flow in the artery. We passed the dilator distally and we again got backbleeding and fore-bleeding in the inupiat artery. We then flushed the graft, and again there was good pulsatile arterial flow, without clot. We finished the anastomosis and flow was established. There was no evidence of bleeding from either anastomosis, good pulses noted within the vein graft. We irrigated out the proximal wound with saline and then closed it with interrupted 3-0 Polysorb stitches. Interrupted 3-0 Polysorb were placed in the muscle fascia of the distal incision without compromising the vein whatsoever. Some subcutaneous stitches were placed as well. We had some bleeding along the course of the tunnel in the distal lateral thigh. We extended our skin incision somewhat and then felt that we had identified a subcutaneous bleeder, and felt that this significantly improved the subcutaneous bleeding from the tunnel. There was no evidence of bleeding from the vein graft. We then closed each incision with coby. Sterile dressings were applied. An ABD was placed also at the proximal incision, and a 6-inch Dileep was loosely wrapped around the thigh and leg to provide gentle pressure along the course of the tunnel. She tolerated it well. Estimated blood loss was between 200 and 250 mL. She was sent to the recovery room in stable condition. Dorsalis pedis pulse was palpated throughout the procedure. cc: Topher Colby MD MTDD
[2019-07-02] MEDS: ZOFRAN IV PRN (21:32)
[2019-07-03] MEDS: ZOSYN 3.375 GM in NS 50 ML IV SCH ×4 (04:15→21:23)
[2019-07-03] MEDS: DILAUDID IV PRN ×6 (05:17→21:23)
[2019-07-03] MEDS: NORCO-10 PO PRN ×3 (06:22→20:15)
[2019-07-03 07:22] LABS: BASO# 0.06 X1000 (0.0-0.2); BASO% 0.6 % (0.0-0.8); EOS# 0.18 X1000 (0.0-0.7); EOS% 1.8 % (0.0-10.0); HEMATOCRIT 35.5 % (37.0-47.0); HEMOGLOBIN 11.1 g/dL (12.0-16.0); IMM GRAN# 0.37 X1000 (0.0-0.04); IMM GRAN% 3.8 % (0.0-0.5); LYMPH# 1.89 X1000 (1.2-3.4); LYMPH% 19.2 % (20.5-51.1); MCH 29.9 PG (27-31); MCHC 31.3 g/dL (33-37); MCV 95.7 FL (81-99); MONO# 1.39 X1000 (0.11-0.59); MONO% 14.1 % (1.7-9.3); MPV 8.5 FL (7.4-10.4); NEUT# 5.94 X1000 (1.4-6.5); NEUT% 60.5 % (42.2-75.2); PLT 694 X1000 (130-400); RBC 3.71 XMIL (4.2-5.4); RDW 14.9 % (11.5-14.5); WBC 9.83 X1000 (4.8-10.8)
[2019-07-03 07:38] LABS: AGAP 8; BUN 6 mg/dL (8-22); CHLORIDE 101 mmol/L (98-107); COSMO 268; CREATININE 0.4 mg/dL (0.5-0.9); ESTIMATED GFR > 60; GLUCOSE 105 mg/dL (70-104); POTASSIUM 3.8 mmol/L (3.5-5.1); SODIUM 135 mmol/L (136-145); TCO2 26 mmol/L (25-35)
[2019-07-03] MEDS: PLAVIX PO SCH (08:49)
[2019-07-03] MEDS: PERIDEX MT SCH ×2 (08:49→21:24)
[2019-07-03] MEDS: CRESTOR PO SCH (08:49)
[2019-07-03] MEDS: NEUTRA-PHOS PO SCH ×4 (08:49→21:24)
[2019-07-03] MEDS: ASPIRIN PO SCH (08:50)
[2019-07-03] MEDS: NEURONTIN PO SCH ×3 (08:55→21:24)
[2019-07-03] MEDS: VANCOMYCIN 1,100 MG in NS 250 ML IV SCH (12:56)
--- NOTE | 2019-07-03 13:33 | GENERAL SURGERY PROGRESS NOTE ---
DATE: 07/03/2019 At this point, patient seems to be doing okay. She does have some swelling noted to her left leg which makes finding the signal difficult. The leg itself appears to be perfused. She says she is feeling a little bit better. She has had some drainage come out of her incision. At this point, we will continue current treatment. We will take down her dressing tomorrow reassess the length of the bypass graft that is done laterally see what the flow is, but otherwise we will continue current treatment. Continue antiplatelet therapy as ordered by Dr. Colby. cc: Arian Hoffman MD
--- NOTE | 2019-07-03 21:14 | PROGRESS NOTE ---
DATE: 07/03/2019 INTERVAL HISTORY: The patient is status post cadaver vein femoral bypass surgery yesterday. Significant pain this morning not entirely relieved by her current pain medication. A little bit of drainage from the leg this morning. She remains afebrile. No other new complaints. No acute events. REVIEW OF SYSTEMS: Twelve point review of systems, negative as per interval history. LABORATORIES: WBC 9.8, hemoglobin 11.1, hematocrit 35.5, platelets 694,000. Sodium 135, potassium 3.8, BUN 6, creatinine 0.4, bicarb 26, glucose 105. VITALS: T-max 98.3 degrees, pulse 107, respirations 18, blood pressure 134/78, O2 saturation 99% on room air. PHYSICAL EXAMINATION: General: Slight distress. Vitals: As above. HEENT: Normocephalic, atraumatic. Moist mucous membranes. Cardiovascular: Slightly tachycardic but regular no murmurs noted. Pulmonary: Clear to auscultation bilaterally. No wheezing, rales, or rhonchi. Abdomen: Soft, nontender, nondistended. Bowel sounds positive. Extremities: Peripheral pulses decreased but present. Left leg remains heavily bandaged. Some sanguinous drainage noted on the posterior side. Neurologic: Cranial nerves grossly intact, no focal deficits identified. Psychiatric: A little tearful but essentially normal affect. Awake, alert, and oriented x3. ASSESSMENT AND PLAN: 1. Left leg graft occlusion secondary to infected hematoma. Patient with initial surgical clean evacuation of hematoma, June 17, 2019. She had repeat surgery 07/02/2019 for cadaver vein graft placement to try to salvage blood flow to the leg. Some pain issues this morning, so her dose of Dilaudid increased slightly, but otherwise doing well. Surgery plans on re- evaluating the wounds tomorrow. Continue antibiotics with vancomycin and Zosyn and monitor closely. 2. Peripheral arterial disease on aspirin and Plavix, which we will continue unless Surgery asks us to stop them. 3. Hyperlipidemia. Continue home statin. 4. Hypertension. Blood pressure control remains good off of home blood pressure medications. Continue holding those unless blood pressure becomes elevated. 5. Anemia. Minimal drop postoperative, which is expected. Monitor but no signs of significant bleeding noted.
[2019-07-03] MEDS: ZOFRAN IV PRN (21:25)
[2019-07-04] MEDS: DILAUDID IV PRN ×5 (00:34→13:07)
[2019-07-04] MEDS: NORCO-10 PO PRN ×3 (01:49→19:46)
[2019-07-04] MEDS: ZOSYN 3.375 GM in NS 50 ML IV SCH ×4 (04:57→21:05)
[2019-07-04 06:59] LABS: BASO# 0.06 X1000 (0.0-0.2); BASO% 0.6 % (0.0-0.8); EOS# 0.29 X1000 (0.0-0.7); HEMATOCRIT 35.8 % (37.0-47.0); IMM GRAN# 0.21 X1000 (0.0-0.04); IMM GRAN% 2.2 % (0.0-0.5); LYMPH# 1.77 X1000 (1.2-3.4); LYMPH% 18.2 % (20.5-51.1); MCH 29.6 PG (27-31); MCHC 30.7 g/dL (33-37); MCV 96.5 FL (81-99); MONO# 1.21 X1000 (0.11-0.59); MONO% 12.4 % (1.7-9.3); MPV 8.5 FL (7.4-10.4); NEUT# 6.19 X1000 (1.4-6.5); NEUT% 63.6 % (42.2-75.2); PLT 636 X1000 (130-400); RBC 3.71 XMIL (4.2-5.4); RDW 14.7 % (11.5-14.5); WBC 9.73 X1000 (4.8-10.8)
[2019-07-04 07:26] LABS: AGAP 7; BUN 7 mg/dL (8-22); CALCIUM 8.2 mg/dL (8.8-10.2); CHLORIDE 101 mmol/L (98-107); COSMO 270; CREATININE 0.4 mg/dL (0.5-0.9); ESTIMATED GFR > 60; GLUCOSE 101 mg/dL (70-104); POTASSIUM 3.6 mmol/L (3.5-5.1); SODIUM 136 mmol/L (136-145); TCO2 28 mmol/L (25-35)
[2019-07-04] MEDS: NEURONTIN PO SCH ×3 (08:17→21:04)
[2019-07-04] MEDS: PLAVIX PO SCH (08:18)
[2019-07-04] MEDS: NEUTRA-PHOS PO SCH ×4 (08:18→21:04)
[2019-07-04] MEDS: ASPIRIN PO SCH (08:18)
[2019-07-04] MEDS: PERIDEX MT SCH ×2 (08:18→21:04)
[2019-07-04] MEDS: CRESTOR PO SCH (08:18)
--- NOTE | 2019-07-04 08:59 | GENERAL SURGERY PROGRESS NOTE ---
DATE: 07/04/2019 The patient seems to be doing okay. She has been hemodynamically stable. I took down her dressing. I was able to hear a weak signal through her cadaveric vein bypass on the lateral aspect of her thigh. I still cannot hear a dorsalis pedis, but her foot appears to be perfused. It is still somewhat swollen, so this may be making it difficult to hear the signal. At this point, will continue her antiplatelet therapy. She is on aspirin and Plavix. Will continue to monitor. cc: rAian Hoffman MD
--- NOTE | 2019-07-04 16:36 | PROGRESS NOTE ---
DATE: 07/04/2019 INTERVAL HISTORY: The patient still with fairly significant left leg pain but much better controlled with medication adjustments yesterday. Still some oozing from the necrotic area on her left medial thigh. No other acute events. No new complaints. REVIEW OF SYSTEMS: Twelve point review of systems negative except as per interval history. LABS: WBC 9.7, hemoglobin 11.0, hematocrit 35.8, platelets 636,000. Sodium 136, potassium 3.6, BUN 7, creatinine 0.4. VITALS: T-max 98.3 degrees, pulse 105, respirations 18, blood pressure 117/62. O2 saturation 100% on room air. PHYSICAL EXAMINATION: General: No acute distress. Chronically ill appearing. Vitals: As above. HEENT: Normocephalic, atraumatic. Moist mucous membranes. Cardiovascular: Minimally tachycardic but regular. No murmurs noted. Pulmonary: Clear to auscultation bilaterally. No wheezing, rales, or rhonchi. Abdomen: Soft, nontender, nondistended. Bowel sounds positive. Extremities: Peripheral pulses decreased but present on the right. Left leg medially with intact surgical coby surrounding large necrotic area starting just below the knee and extending down a few inches proximal to the ankle. Some sanguinous drainage from the distal end of the necrotic area. Laterally, surgical incision clean, dry, intact, stapled. Surgery was at the bedside, and ultrasounding the new lateral vein graft. Seemed to have good pulsation to Doppler proximal to the knee but was difficult to find distal to the knee. Neurologic: Cranial nerves grossly intact. No focal deficits identified. Psychiatric: Normal mood and affect. Awake, alert, oriented x3. ASSESSMENT AND PLAN: 1. Left leg graft occlusion secondary to compression by infected hematoma. Patient with initial surgical clean-out and evacuation of hematoma on June 17. Had repeat surgery on 07/02 for cadaveric vein graft placement on the other side of her left leg to salvage blood flow and try to avoid amputation. Some pain issues that improved with dose adjustment of Dilaudid yesterday. Surgery performed Doppler today with reasonable blood flow proximal to the knee but difficult to find pulse distal to the knee. They are planning on doing further vascular studies to better assess her new graft. Continue antibiotics with vancomycin and Zosyn and monitor closely. 2. Peripheral arterial disease. Continue aspirin and Plavix pending further surgical recommendations. 3. Hyperlipidemia. Continue statin. 4. Hypertension. Blood pressure control remains reasonable off of home medicines. Continue to monitor and restart if needed. 5. Anemia. Minor drop postoperatively, stable since. Monitor.
[2019-07-04] MEDS ORDERED: HEPARIN ONE ×2 (17:44)
[2019-07-04] MEDS ORDERED: NS 2,000 ML ONE (17:44)
[2019-07-04] MEDS ORDERED: QUELICIN (DOSE) ONE (18:14)
[2019-07-04] MEDS ORDERED: DIPRIVAN 1% ONE (18:14)
--- NOTE | 2019-07-04 18:24 | GENERAL SURGERY PROGRESS NOTE ---
DATE: 07/04/2019 I saw her this afternoon between 1 and 2 o'clock and had her graft imaged. It was occluded. We therefore plan to thrombectomize her graft. She may require postoperative anticoagulation more aggressive than what she has received thus far. We discussed this with her. She understands and agrees to proceed. cc: Topher Colby MD MTDD
[2019-07-04] MEDS ORDERED: HEPARIN (DOSE) ONE (18:39)
[2019-07-04] MEDS ORDERED: XYLOCAINE-MPF 2% ONE (18:39)
[2019-07-04] MEDS ORDERED: ZOFRAN ONE (18:45)
[2019-07-04] MEDS ORDERED: SODIUM CHLORIDE 0.9% 10 ML ONE (18:56)
[2019-07-04] MEDS ORDERED: NEO-SYNEPHRINE ONE (18:56)
[2019-07-04] MEDS ORDERED: OFIRMEV 1000 MG/ISOTONIC SOLN 1,000 MG/100 ML BOTTLE ONE (19:00)
[2019-07-04] MEDS ORDERED: DILAUDID ONE (19:38)
[2019-07-04] MEDS ORDERED: NORCO-10 ONE (19:41)
[2019-07-04] MEDS: LOVENOX SUBQ SCH (21:12)
--- NOTE | 2019-07-04 21:23 | OPERATIVE NOTE ---
PROCEDURE DATE: 07/04/2019 PROCEDURE: Thrombectomy, left leg cadaveric vein graft. PREOPERATIVE DIAGNOSIS: Thrombosis left leg, cadaveric vein graft. POSTOP DIAGNOSIS: Thrombosis left leg, cadaveric vein graft. INDICATIONS: This lady is 2 days after placement of a left leg cadaver vein from her common femoral to anterior tibial as limb salvage. DESCRIPTION OF PROCEDURE: Satisfactory general endotracheal anesthesia was achieved, the left leg was prepped and draped in a sterile fashion. The foot was excluded. We removed some of the coby from the lateral calf and exposed the vein graft as it went down to the anterior tibial artery. We gave the patient 5000 units of heparin systemically. After that it circulated for 5 minutes, we then passed a vessel loop around the vein graft proximally and distally in the wound. We then made a small graft otomy transversely with 11 blade and 2.5 loupe magnification. We then passed a [address] to the foot. We extracted fresh clot out of the artery in the vein graft. After we passed 2 passes we got no further clot and there was back bleeding from the anterior tibial. The catheter did go all the way to the dorsum of the foot. We then occluded flow with our vessel loop distally. We then passed the Stephanie proximally and we passed it all the way to the extent of the Stephanie into the external iliac and then extracted clot from the proximal vein graft and it was extensive and appeared to have platelet debris. We removed a substantial amount of clot. We did it a 2nd time and after doing that we had excellent anterior antegrade pulsatile flow. One additional time retrieved no further clot and this did go through the proximal anastomosis. We then occluded flow proximally with the vessel loop and then closed the transverse vein graft otomy with a 6-0 Prolene running stitch under 2.5 loupe magnification. Flow was established. A good pulse was noted within the vein graft. I did open the coby in the distal lateral thigh and evacuated what subcutaneous clot was present in the subcutaneous tissue along the course of the vein graft. We then closed the subcutaneous tissue of the calf wound with 3-0 Polysorbs. The skin was then closed with coby. One subcutaneous stitch was placed in the distal lateral thigh and then the skin was closed with coby. Sterile dressings were applied. She tolerated it well. Estimated blood loss was 30 mL. She was sent to the recovery room in stable condition. Mike#: [id number] cc: Topher Colby MD
[2019-07-04] MEDS ORDERED: TORADOL IV PRN (21:42)
[2019-07-04] MEDS ORDERED: TORADOL IV ONE (21:44)
[2019-07-04] MEDS: VANCOMYCIN 1,100 MG in NS 250 ML IV SCH (23:57)
[2019-07-05] MEDS: NORCO-10 PO PRN ×5 (01:49→21:46)
[2019-07-05] MEDS: ZOSYN 3.375 GM in NS 50 ML IV SCH ×4 (03:56→21:47)
[2019-07-05 06:18] LABS: BASO# 0.12 X1000 (0.0-0.2); EOS# 0.27 X1000 (0.0-0.7); EOS% 2.3 % (0.0-10.0); HEMATOCRIT 31.3 % (37.0-47.0); HEMOGLOBIN 9.5 g/dL (12.0-16.0); IMM GRAN# 0.13 X1000 (0.0-0.04); IMM GRAN% 1.1 % (0.0-0.5); LYMPH# 1.88 X1000 (1.2-3.4); LYMPH% 16.2 % (20.5-51.1); MCH 29.6 PG (27-31); MCHC 30.4 g/dL (33-37); MCV 97.5 FL (81-99); MONO# 1.17 X1000 (0.11-0.59); MONO% 10.1 % (1.7-9.3); MPV 8.5 FL (7.4-10.4); NEUT# 8.07 X1000 (1.4-6.5); NEUT% 69.3 % (42.2-75.2); PLT 585 X1000 (130-400); RBC 3.21 XMIL (4.2-5.4); RDW 14.6 % (11.5-14.5); WBC 11.64 X1000 (4.8-10.8)
[2019-07-05 06:47] LABS: AGAP 8; BUN 7 mg/dL (8-22); CHLORIDE 104 mmol/L (98-107); COSMO 270; CREATININE 0.4 mg/dL (0.5-0.9); ESTIMATED GFR > 60; GLUCOSE 95 mg/dL (70-104); POTASSIUM 3.8 mmol/L (3.5-5.1); SODIUM 136 mmol/L (136-145); TCO2 24 mmol/L (25-35)
[2019-07-05] MEDS: CRESTOR PO SCH (09:25)
[2019-07-05] MEDS: ASPIRIN PO SCH (09:25)
[2019-07-05] MEDS: NEURONTIN PO SCH ×3 (09:25→21:46)
[2019-07-05] MEDS: PLAVIX PO SCH (09:26)
[2019-07-05] MEDS: LOVENOX SUBQ SCH ×2 (09:26→21:46)
[2019-07-05] MEDS: PERIDEX MT SCH ×2 (09:27→21:46)
[2019-07-05] MEDS: NEUTRA-PHOS PO SCH ×4 (09:28→21:46)
--- NOTE | 2019-07-05 17:03 | PROGRESS NOTE ---
DATE: 07/05/2019 SUBJECTIVE: Patient has no major complaints. OBJECTIVE: Blood pressure is 103/56, heart rate of 95, respiratory rate 16, temperature 97.8 degrees, oxygen saturation 99% on room air.Cardiovascular: Regular rate and rhythm. Pulmonary: Bilateral breath sounds, clear to auscultation. Gastrointestinal: Soft, nontender, nondistended. Bowel sounds are positive. DIAGNOSTIC DATA: White count 11, hemoglobin and hematocrit of 9 and 31, platelets 585,000. Basic was normal. PROBLEM LIST: 1. Left leg graft occlusion due to infected hematoma. This is status post she had a thrombectomy today. She had a cadaveric vein graft placement on the left leg and then had acute thrombus, which was evacuated today. Dr. Colby is continuing to monitor. She has fairly large wound related to her other issues, which apparently will require possibly a grafting versus a wound VAC that will be per Dr. Colby. She is currently on vancomycin and Zosyn. 2. Severe peripheral vascular disease. She is on aspirin and Plavix. 3. Dyslipidemia. She is on statin. 4. Disposition, really per surgical care. We will see how she does. Discharge per their recommendations. cc: Tomy Mayes MD
--- NOTE | 2019-07-05 17:05 | GENERAL SURGERY PROGRESS NOTE ---
DATE: 07/05/2019 OBJECTIVE: Ms. Leahy is afebrile, heart rate 95, blood pressure 103/56. She has a palpable graft pulse. Her left foot is warm. LABORATORY DATA: Hemoglobin 9.5, hematocrit 31. Chemistry is fine. PLAN: We will continue with Lovenox for now, as well as her antibiotic therapy. Eventually will have to debride the eschar, but I am not quite ready to do that. Her graft is open. cc: Topher Colby MD
[2019-07-05] MEDS: VANCOMYCIN 1,100 MG in NS 250 ML IV SCH (22:36)
[2019-07-06] MEDS: ZOSYN 3.375 GM in NS 50 ML IV SCH ×4 (04:11→22:43)
[2019-07-06] MEDS: NORCO-10 PO PRN ×5 (04:41→22:43)
[2019-07-06 06:52] LABS: BASO# 0.08 X1000 (0.0-0.2); BASO% 0.8 % (0.0-0.8); EOS# 0.28 X1000 (0.0-0.7); EOS% 2.9 % (0.0-10.0); HEMATOCRIT 31.1 % (37.0-47.0); HEMOGLOBIN 9.6 g/dL (12.0-16.0); IMM GRAN# 0.13 X1000 (0.0-0.04); IMM GRAN% 1.4 % (0.0-0.5); LYMPH# 1.61 X1000 (1.2-3.4); LYMPH% 16.8 % (20.5-51.1); MCH 30.4 PG (27-31); MCHC 30.9 g/dL (33-37); MCV 98.4 FL (81-99); MONO# 1.02 X1000 (0.11-0.59); MONO% 10.6 % (1.7-9.3); MPV 8.7 FL (7.4-10.4); NEUT# 6.49 X1000 (1.4-6.5); NEUT% 67.5 % (42.2-75.2); PLT 552 X1000 (130-400); RBC 3.16 XMIL (4.2-5.4); RDW 14.7 % (11.5-14.5); WBC 9.61 X1000 (4.8-10.8)
[2019-07-06 07:12] LABS: AGAP 7; BUN 10 mg/dL (8-22); CALCIUM 8.1 mg/dL (8.8-10.2); CHLORIDE 102 mmol/L (98-107); COSMO 270; CREATININE 0.4 mg/dL (0.5-0.9); ESTIMATED GFR > 60; GLUCOSE 110 mg/dL (70-104); SODIUM 135 mmol/L (136-145); TCO2 26 mmol/L (25-35)
[2019-07-06 07:32] LABS: BANDS 4 % (0-1); LYMPHS 12 % (21-51); SEGS 84 % (42-75)
[2019-07-06 07:33] LABS: HYPOCHROM 2+; LARGE PLATELETS 1+
[2019-07-06] MEDS: PLAVIX PO SCH (08:16)
[2019-07-06] MEDS: CRESTOR PO SCH (08:16)
[2019-07-06] MEDS: PERIDEX MT SCH ×2 (08:16→22:43)
[2019-07-06] MEDS: NEUTRA-PHOS PO SCH ×4 (08:17→22:44)
[2019-07-06] MEDS: ASPIRIN PO SCH (08:17)
[2019-07-06] MEDS: LOVENOX SUBQ SCH ×2 (08:17→22:44)
[2019-07-06] MEDS: NEURONTIN PO SCH ×3 (08:17→22:44)
--- NOTE | 2019-07-06 12:27 | GENERAL SURGERY PROGRESS NOTE ---
DATE: 07/06/2019 OBJECTIVE: Ms. Leahy is afebrile. Heart rate 83, blood pressure 127/69. She has a palpable graft pulse. Her foot is warm. Input is 800, output 2100. LABORATORY DATA: White count is 9600, hemoglobin 9.6, hematocrit 31. Chemistry is fine. PLAN: The plan will be to remove her Magallon catheter today and start getting her in a chair. We will have to resect the eschar on the medial aspect of her thigh on and apply wound VAC. We will keep her on Lovenox and then convert her to Eliquis and hopefully keep her on Eliquis for only a few weeks before we can stop that. This is simply to allow the vein graft to stabilize. cc: Topher Colby MD
--- NOTE | 2019-07-06 19:34 | PROGRESS NOTE ---
DATE: 07/06/2019 SUBJECTIVE: She has had some bleeding today from her surgical site. OBJECTIVE: Blood pressure is 118/63, heart rate of 99, respiratory rate 18, temperature 98.1 degrees, 94% on room air.Cardiovascular: Regular rate and rhythm. Pulmonary: Bilateral breath sounds, clear to auscultation. GI: Soft, nontender, nondistended. Bowel sounds are positive. LABORATORY DATA: White count is 9, hemoglobin and hematocrit are 9.6 and 31, which is stable from yesterday, platelets of 552,000. Sodium 135. ASSESSMENT AND PLAN: 1. Severe peripheral vascular disease with a left graft occlusion. She is status post thrombectomy, cadaveric vein graft placement which has also had a thrombectomy. We will continue wound care per Dr. Colby. Anticipate she may need a graft wound vacuum-assisted closure. We will continue to follow. She is empirically on antibiotics. I am reluctant to stop any antiplatelet or deep venous thrombosis prophylaxis, just because she has had issues with thrombosis. 2. Severe peripheral vascular disease. She is on aspirin and Plavix. 3. Dyslipidemia. She is currently on Crestor 5. May need to bump that up a little bit, but we will see. 4. Continue to follow closely. Disposition per Surgery. cc: Tomy Mayes MD
[2019-07-06] MEDS: VANCOMYCIN 1,100 MG in NS 250 ML IV SCH (23:29)
[2019-07-07] MEDS: NORCO-10 PO PRN ×5 (04:37→21:46)
[2019-07-07] MEDS: ZOSYN 3.375 GM in NS 50 ML IV SCH ×5 (04:37→21:38)
[2019-07-07 07:20] LABS: BASO# 0.06 X1000 (0.0-0.2); BASO% 0.6 % (0.0-0.8); EOS# 0.26 X1000 (0.0-0.7); EOS% 2.8 % (0.0-10.0); HEMATOCRIT 32.4 % (37.0-47.0); HEMOGLOBIN 9.7 g/dL (12.0-16.0); IMM GRAN# 0.08 X1000 (0.0-0.04); IMM GRAN% 0.9 % (0.0-0.5); LYMPH# 1.41 X1000 (1.2-3.4); MCH 29.3 PG (27-31); MCHC 29.9 g/dL (33-37); MCV 97.9 FL (81-99); MONO# 1.05 X1000 (0.11-0.59); MONO% 11.2 % (1.7-9.3); MPV 8.9 FL (7.4-10.4); NEUT# 6.51 X1000 (1.4-6.5); NEUT% 69.5 % (42.2-75.2); PLT 592 X1000 (130-400); RBC 3.31 XMIL (4.2-5.4); RDW 14.7 % (11.5-14.5); WBC 9.37 X1000 (4.8-10.8)
[2019-07-07 07:38] LABS: AGAP 8; BUN 7 mg/dL (8-22); CALCIUM 8.1 mg/dL (8.8-10.2); CHLORIDE 105 mmol/L (98-107); COSMO 275; CREATININE 0.4 mg/dL (0.5-0.9); ESTIMATED GFR > 60; GLUCOSE 90 mg/dL (70-104); SODIUM 139 mmol/L (136-145); TCO2 26 mmol/L (25-35)
[2019-07-07] MEDS: PLAVIX PO SCH (08:50)
[2019-07-07] MEDS: PERIDEX MT SCH ×2 (08:50→21:38)
[2019-07-07] MEDS: NEUTRA-PHOS PO SCH ×4 (08:50→21:37)
[2019-07-07] MEDS: ASPIRIN PO SCH (08:50)
[2019-07-07] MEDS: LOVENOX SUBQ SCH ×2 (08:51→21:39)
[2019-07-07] MEDS: CRESTOR PO SCH (08:51)
[2019-07-07] MEDS: NEURONTIN PO SCH ×3 (09:02→21:37)
--- NOTE | 2019-07-07 12:15 | GENERAL SURGERY PROGRESS NOTE ---
DATE: 07/07/2019 SUBJECTIVE: Ms. Leahy is afebrile. Heart rate 99, blood pressure 128/62. Her graft pulses present. Her foot is warm. She has had a little bit of oozing from her wounds as expected because of her anticoagulation. The eschar is present on the medial thigh. The plan is to, on the that this , to resect the eschar on her medial thigh in place a wound VAC. At about the same time, we will switch her to Eliquis in preparation for her imminent discharge if we can. cc: Topher Colby MD
--- NOTE | 2019-07-07 19:59 | PROGRESS NOTE ---
DATE: 07/07/2019 SUBJECTIVE: The patient has no major complaint. She seems in a good mood. OBJECTIVE: Vital Signs: Blood pressure 1803/160, heart rate 100, respiratory 16, temperature 98.2, 100% on room air. Cardiovascular: Regular rate and rhythm. Pulmonary: Bilateral breath sounds, clear to auscultation. GI: Soft, nontender, nondistended. Bowel sounds are positive. LABORATORY DATA: White count 9, hemoglobin and hematocrit 9.0 and 28 ASSESSMENT/PLAN: 1. Severe peripheral vascular disease with left graft occlusion. She is status post thrombectomy and cadaveric vein graft. We will continue to follow. Dr. Colby is planning for wound VAC tomorrow and will continue to follow. She is on empiric antibiotics. 2. Severe peripheral vascular disease. We will continue aspirin and Plavix. 3. Dyslipidemia. She is on Crestor. DISPOSITION: Pending surgical workup. cc: Tomy Mayes MD MTDD
[2019-07-08] MEDS: VANCOMYCIN 1,100 MG in NS 250 ML IV SCH (00:17)
[2019-07-08] MEDS: ZOSYN 3.375 GM in NS 50 ML IV SCH ×4 (04:03→23:22)
[2019-07-08 07:26] LABS: BASO# 0.08 X1000 (0.0-0.2); BASO% 0.9 % (0.0-0.8); EOS# 0.28 X1000 (0.0-0.7); EOS% 3.1 % (0.0-10.0); HEMATOCRIT 31.9 % (37.0-47.0); HEMOGLOBIN 9.7 g/dL (12.0-16.0); IMM GRAN# 0.09 X1000 (0.0-0.04); LYMPH# 1.46 X1000 (1.2-3.4); LYMPH% 16.2 % (20.5-51.1); MCHC 30.4 g/dL (33-37); MCV 98.8 FL (81-99); MONO# 0.91 X1000 (0.11-0.59); MONO% 10.1 % (1.7-9.3); MPV 8.6 FL (7.4-10.4); NEUT# 6.19 X1000 (1.4-6.5); NEUT% 68.7 % (42.2-75.2); PLT 558 X1000 (130-400); RBC 3.23 XMIL (4.2-5.4); RDW 14.7 % (11.5-14.5); WBC 9.01 X1000 (4.8-10.8)
[2019-07-08 07:58] LABS: AGAP 6; BUN 8 mg/dL (8-22); CALCIUM 8.1 mg/dL (8.8-10.2); CHLORIDE 106 mmol/L (98-107); COSMO 272; CREATININE 0.4 mg/dL (0.5-0.9); ESTIMATED GFR > 60; GLUCOSE 98 mg/dL (70-104); POTASSIUM 3.9 mmol/L (3.5-5.1); SODIUM 137 mmol/L (136-145); TCO2 25 mmol/L (25-35)
[2019-07-08] MEDS ORDERED: DIPRIVAN 1% ONE (09:17)
[2019-07-08] MEDS ORDERED: XYLOCAINE-MPF 2% ONE (09:17)
[2019-07-08] MEDS ORDERED: ZOFRAN ONE (10:32)
[2019-07-08] MEDS ORDERED: DECADRON ONE (10:32)
[2019-07-08] MEDS ORDERED: DILAUDID ONE (11:29)
[2019-07-08] MEDS ORDERED: NORCO-10 ONE (11:47)
[2019-07-08] MEDS ORDERED: LR 1,000 ML ONE (12:10)
[2019-07-08] MEDS: NEURONTIN PO SCH ×4 (12:59→23:22)
[2019-07-08] MEDS: NEUTRA-PHOS PO SCH ×4 (13:16→23:22)
[2019-07-08] MEDS: PERIDEX MT SCH ×2 (13:50→23:23)
[2019-07-08] MEDS ORDERED: TORADOL IV PRN (13:50)
[2019-07-08] MEDS: PLAVIX PO SCH (13:54)
[2019-07-08] MEDS: CRESTOR PO SCH (13:54)
[2019-07-08] MEDS: ASPIRIN PO SCH (13:55)
[2019-07-08] MEDS: NORCO-10 PO PRN ×2 (15:57→23:22)
--- NOTE | 2019-07-08 18:24 | OPERATIVE NOTE ---
PROCEDURE DATE: 07/08/2019 PROCEDURE PERFORMED: Excision and debridement of skin and soft tissue, (23 x 8 x 2 cm) left posterior medial thigh. PREOPERATIVE DIAGNOSIS: Full-thickness necrosis of the skin left posterior medial thigh. POSTOPERATIVE DIAGNOSIS: Full-thickness necrosis of the skin left posterior medial thigh. DESCRIPTION OF PROCEDURE: Satisfactory general anesthesia was achieved. The left leg was prepped and draped in a sterile fashion. It was prepped circumferentially. The eschar was sharply incised at the viable and necrotic border circumferentially. We dissected into the subcutaneous tissue and removed the whole island eschar of skin. In the subcutaneous tissue we then locally debrided the soft tissue bluntly and excised what necrotic tissue was present. The old vein graft was identified and clotted. The muscle looked healthy. After sharply debriding skin and soft tissue for the extent mentioned we then copiously irrigated it. Hemostasis was satisfactory and was just present at the skin edges. We then placed the ambrosio wound VAC followed by the overlying plastic and the wound VAC was placed under negative pressure at -125, and had a good seal. The new lateral incisions were covered with island dressings. Palpable graft pulse was maintained through the procedure. She tolerated it well and was sent to the recovery room in satisfactory condition. cc: Topher Colby MD
--- NOTE | 2019-07-08 18:45 | PROGRESS NOTE ---
DATE: 07/08/2019 SUBJECTIVE: Patient has no major complaints. OBJECTIVE: Blood pressure 122/62, heart rate of 111, respiratory rate of 16, temperature 98.1 degrees, and 98% on room air.Cardiovascular: Regular rate and rhythm. Pulmonary: Bilateral breath sounds. Clear to auscultation. GI: Soft, nontender, and nondistended. Bowel sounds are positive. Her wound VAC is over her right volar aspect of her posterior aspect of her left leg. LABORATORY: White count is 9, hemoglobin and hematocrit 9 and 31, and platelets 558,000. Electrolytes looked okay. PROBLEM LIST: 1. Severe peripheral vascular disease with a graft revision and then 2 episodes of occlusion and thrombectomy. Today, she has had a wound VAC placed over her graft site. Plan will be to go home with wound VAC at the discretion of surgery, but it sounds like that is probably going to be next week. She is on antibiotics. 2. 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 She is on aspirin, Plavix, and Crestor. DISPOSITION: Pending her surgical care, but again anticipate discharge a little later probably early next week. cc: Tomy Mayes MD
[2019-07-08] MEDS: ELIQUIS PO SCH (23:22)
[2019-07-09] MEDS: VANCOMYCIN 1,200 MG in NS 250 ML IV SCH ×2 (03:36→21:04)
[2019-07-09] MEDS: NORCO-10 PO PRN ×4 (04:31→21:17)
--- NOTE | 2019-07-09 06:36 | VASCULAR LAB ---
DATE: 07/04/2019 REFERRING PHYSICIAN: Dr. Colby. READING PHYSICIAN: Dr. Haney. SOCIAL SERVICE LIAISON: Ismael. INDICATIONS: Evaluate for patency of left leg bypass and decreased pulses. FINDINGS: The anastomosis of the graft of the common femoral artery was identified in the proximal thigh. The graft was noted to be thrombosed which was followed throughout the course of the graft down to its insertion site. The anterior tibial artery is occluded and the posterior tibial artery has very dampened monophasic flow. INTERPRETATION: Occluded bypass graft of the left leg. cc: MD Topher Paris MD
[2019-07-09] MEDS: CRESTOR PO SCH (09:57)
[2019-07-09] MEDS: PERIDEX MT SCH ×2 (09:58→21:04)
[2019-07-09] MEDS: ASPIRIN PO SCH (09:58)
[2019-07-09] MEDS: NEUTRA-PHOS PO SCH ×4 (09:58→21:04)
[2019-07-09] MEDS: PLAVIX PO SCH (09:58)
[2019-07-09] MEDS: ELIQUIS PO SCH ×2 (09:58→21:04)
[2019-07-09] MEDS: ZOSYN 3.375 GM in NS 50 ML IV SCH ×4 (09:59→23:18)
[2019-07-09] MEDS: NEURONTIN PO SCH ×3 (10:11→21:04)
[2019-07-09] MEDS ORDERED: OXY IR PO ONE (13:42)
--- NOTE | 2019-07-09 15:05 | GENERAL SURGERY PROGRESS NOTE ---
DATE: 07/09/2019 Ms. Leahy had a good night. She slept well. She is afebrile. Blood pressure 123/64. Her wound VAC is intact and in place. Her other bandages are changed. She has a palpable graft pulse. She now is on Eliquis in addition to her aspirin and Plavix. The plan is to of course continue with physical therapy. She is to get up in a chair. The plan is to try to get her out of the hospital 1st of next week with home health to assist with her wound VAC as well as physical therapy. cc: Topher Colby MD
--- NOTE | 2019-07-09 20:10 | PROGRESS NOTE ---
DATE: 07/09/2019 SUBJECTIVE: Patient has no major complaints. She seems to be doing okay. OBJECTIVE: Vital Signs: Blood pressure 131/62, heart rate 87, respiratory rate 16, temperature 97.5, 98% on room air. Cardiovascular: Regular rate and rhythm. Pulmonary: Bilateral breath sounds, clear to auscultation. GI: Soft, nontender. LABORATORY DATA: White count 9, hemoglobin and hematocrit 9 and 31, platelets 558. Basic was normal. PROBLEM LIST: 1. Severe peripheral vascular disease with graft revision and 2 episodes of stenosis/thrombosis. She has a wound VAC in place and possibly home on Friday. 2. Severe peripheral vascular disease. She is on aspirin, Plavix, Crestor. DISPOSITION: Hopefully we are going to monitor over the weekend and discharge on Friday at the discretion of Surgery. She is still on antibiotics, vancomycin and Zosyn. cc: Tomy Mayes MD
[2019-07-10] MEDS: ZOSYN 3.375 GM in NS 50 ML IV SCH ×4 (05:05→21:38)
[2019-07-10] MEDS: PERIDEX MT SCH ×2 (09:54→21:38)
[2019-07-10] MEDS: ASPIRIN PO SCH (09:54)
[2019-07-10] MEDS: NORCO-10 PO PRN ×4 (09:54→22:45)
[2019-07-10] MEDS: ELIQUIS PO SCH ×2 (09:54→21:38)
[2019-07-10] MEDS: CRESTOR PO SCH (09:54)
[2019-07-10] MEDS: PLAVIX PO SCH (09:55)
[2019-07-10] MEDS: NEURONTIN PO SCH ×3 (09:55→21:38)
[2019-07-10] MEDS: NEUTRA-PHOS PO SCH ×4 (09:55→21:38)
[2019-07-10] MEDS: VANCOMYCIN 1,200 MG in NS 250 ML IV SCH (14:33)
--- NOTE | 2019-07-10 15:50 | GENERAL SURGERY PROGRESS NOTE ---
DATE: 07/10/2019 SUBJECTIVE: She feels very well. OBJECTIVE: No fevers. Pulse 102, blood pressure 129/71. Her left lower extremity is warm. Her medial wound VAC is in place with good suction. No cellulitis. LABORATORY DATA: White count is 9, hematocrit is 31. Creatinine is 0.4. Those labs are from the 16th. ASSESSMENT AND PLAN: A 68-year-old female status post revascularization of the left lower extremity. She has a wound VAC in place on a medial wound. Plan is to go home this week. Otherwise, we will continue physical therapy. cc: Naina Cao MD
--- NOTE | 2019-07-10 17:26 | PROGRESS NOTE ---
DATE: 07/10/2019 SUBJECTIVE: She has no major complaints. OBJECTIVE: Vital signs: Her vital signs are stable. A little tacky but nothing major. Her exam is really unchanged. Extremities: Dressing overlying her left lower extremity. Cardiovascular: Regular rate and rhythm. Pulmonary: Bilateral breath sounds, clear to auscultation. Abdomen: Soft, nontender, nondistended. Bowel sounds are positive. ASSESSMENT AND PLAN: Severe peripheral vascular disease with graft revision, cadaveric vein transplants and thrombectomy x2. The patient still has good pulse now several days after her last procedure. She has got a wound VAC over her area of graft revision. Plan is to continue treatment. She is on IV antibiotics and then we will see on Friday going home with a wound VAC. cc: Tomy Mayes MD
[2019-07-11] MEDS: ZOSYN 3.375 GM in NS 50 ML IV SCH ×4 (05:08→17:23)
[2019-07-11] MEDS: NORCO-10 PO PRN ×2 (05:40→23:11)
[2019-07-11] MEDS: ELIQUIS PO SCH ×2 (08:43→22:43)
[2019-07-11] MEDS: ASPIRIN PO SCH (08:43)
[2019-07-11] MEDS: NEUTRA-PHOS PO SCH ×4 (08:43→22:44)
[2019-07-11] MEDS: PERIDEX MT SCH ×2 (08:43→22:43)
[2019-07-11] MEDS: PLAVIX PO SCH (08:43)
[2019-07-11] MEDS: CRESTOR PO SCH (08:44)
[2019-07-11] MEDS: NEURONTIN PO SCH ×3 (08:45→22:44)
[2019-07-11] MEDS: VANCOMYCIN 1,000 MG in NS 250 ML IV SCH ×2 (12:18→22:43)
--- NOTE | 2019-07-11 15:00 | GENERAL SURGERY PROGRESS NOTE ---
DATE: 07/11/2019 SUBJECTIVE: Doing okay. No complaints. No fevers. Pulse has been 99, blood pressure 146/76. Her left leg is warm. Dressings are clean. Wound VAC is in place. I reviewed her labs, nothing new today. ASSESSMENT AND PLAN: A 68-year-old female status post revascularization of left lower extremity, wound VAC changes to the medial thigh wound. I think plan is to go home with home health in the near future. I do not see any issues with this. She is on appropriate antibiotics. We will follow along. cc: Naina Cao MD
--- NOTE | 2019-07-11 19:08 | PROGRESS NOTE ---
DATE: 07/11/2019 SUBJECTIVE: Patient has no major complaints. OBJECTIVE: Vital Signs: Blood pressure 112/60, heart rate 101, respiratory rate 20, temperature 97.9 degrees, 100% on room air. Cardiovascular: Regular rate and rhythm. Pulmonary: Bilateral breath sounds, clear to auscultation. GI: Soft, nontender, nondistended. Bowel sounds are positive. PROBLEM LIST: Severe peripheral vascular disease with graft revision, cadaveric vein transplant, thrombectomy, and VAC and will see how things go. She is on IV antibiotics. Continue to follow closely. Anticipate discharge on Friday per Dr. Colby's recommendations. cc: Tomy Mayes MD
[2019-07-12] MEDS: ZOSYN 3.375 GM in NS 50 ML IV SCH ×2 (01:11→08:50)
[2019-07-12 08:04] VITALS: BP 123/61
[2019-07-12] MEDS: ELIQUIS PO SCH (08:51)
[2019-07-12] MEDS: ASPIRIN PO SCH (08:51)
[2019-07-12] MEDS: NEUTRA-PHOS PO SCH (08:52)
[2019-07-12] MEDS: CRESTOR PO SCH (08:52)
[2019-07-12] MEDS: PERIDEX MT SCH (08:53)
[2019-07-12] MEDS: PLAVIX PO SCH (08:53)
[2019-07-12] MEDS: NORCO-10 PO PRN (08:56)
[2019-07-12] MEDS: NEURONTIN PO SCH (08:56)
[2019-07-12] MEDS: VANCOMYCIN 1,000 MG in NS 250 ML IV SCH (10:30)
--- NOTE | 2019-07-12 11:24 | GENERAL SURGERY PROGRESS NOTE ---
DATE: 07/12/2019 SUBJECTIVE: Ms. Leahy is afebrile. Blood pressure 123/61. She has a palpable graft pulse. She has a palpable dorsalis pedis pulse. Her wounds look okay. Her wound VAC is in place. We will plan to discharge her today. She is to have home health change her wound VAC 3 times a week, and she is to have home health PT to help her get in and out of the bed and eventually bear weight on her left foot. She is to be discharged home on aspirin, Plavix and Eliquis. She will return to see me in the office in 1 week. cc: Topher Colby MD
--- NOTE | 2019-08-13 01:53 | DISCHARGE SUMMARY ---
ADMISSION DATE: 06/16/2019 DISCHARGE DATE: 07/12/2019 DISCHARGE DIAGNOSIS: Severe peripheral vascular disease. She had graft occlusion of her previous mesenteric graft revision. She had a thrombectomy, cadaveric vein transplant and wound VAC on her leg associated with that briefly. OPERATIVE NOTES: 1. On 06/17, she had a thrombosis of her vein graft and evacuation of distal thigh hematoma. Surgical repair of bleeding being graft ligation of multiple AV fistula. 2. On 06/29, she had hemorrhage and left lower extremity hematoma for which she had a deep space hematoma evacuation, repair of the venotomy of the distal saphenous vein graft. 3. On 07/02, per Dr. Colby, she had a left femoral anterior tibial cadaveric vein bypass. 4. On 07/04, per Dr. Colby, she had a thrombectomy of her left leg cadaveric vein graft due to thrombosis. 5. On 07/08, she had excision and debridement of skin and soft tissue of her left posterior medial thigh per Dr. Colby. BRIEFLY: This is a 69-year-old female with history of severe PVD, right [id number] amputation, who came in, she is 6 days post a left femoral-popliteal vein bypass with pain and very faint pulses. She was admitted for treatment, admitted per Dr. Cortes. She was placed on heparin. Surgery was consulted. Per Dr. Colby, she underwent thrombectomy and revision of her left thigh with concern over thrombosis of her graft. Her white count was very high at 23,000. On the 06/17, she went underwent open thrombectomy of her vein graft, evacuation of a distal thigh hematoma, suture repair of her bleeding vein graft and ligation of multiple AV fistulas. She was placed on broad-spectrum IV antibiotics. She had some anemia. She ended up getting transfused 8 units total of blood. Primarily, her care was surgical. She will need to be placed on a platelet inhibitor and Eliquis. She had severe PVD. She was on Plavix and Eliquis. She had sepsis with Strep biology in these infections, so she was maintained on antibiotics. This was cultured from her. She had been placed on cefazolin. Overall, she improved. On 07/02, again, she underwent thrombosis of her left femoral popliteal in situ vein bypass, which she had a cadaveric vein bypass. On the , she had a thrombectomy of her left leg cadaveric vein bypass despite anticoagulation. Overall, she slowly improved. There was anticipation because of her damage to her skin that she would need a wound VAC or a skin graft, but she ended up undergoing wound VAC. She was maintained on IV antibiotics. On 07/[address] Colby, she was felt stable for discharge. Pulses were good. Wound VAC was in place. She was placed on a wound VAC 3 times a week with home health change, and discharged in stable condition. DISCHARGE MEDICATIONS: Aspirin 81 daily, Plavix 75 daily, Crestor 5 daily, Eliquis 5 b.i.d., gabapentin 100 t.i.d., Neutra-Phos, and Natalia. DISCHARGE INSTRUCTIONS: She will follow up with Dr. Colby for further management. Stable at the time of discharge. H H was 9 and 31 on 07/08. cc: MD Topher Fernandez MD
== END 2019-07-12 12:21 | disposition home health service (06) | DRG 856 ==
LOC: SUPCPDRO → ED 13:20 → SUATTDRO 15:22 → 2N 15:22 → 4N 06-26 19:24 → ICU 06-29 21:31 → 4N 07-01 13:27
PROVIDERS: ATTEND Internal Medicine